=== PATIENT | male | born 1960 | race Caucasian/White ===

== ENCOUNTER 2017-06-13 21:08 | Inpatient (IN) | payer MEDICAID ==
[~2017-06-13] VITALS: Ht 172.7 cm; Wt 81.8 kg
[~2017-06-13 21:08] MED LIST: CARV3.1289 PO; FURO-150 PO; INSU100I25 SQ; LISI-604 PO; NOVLG SQ; POTA20TA19 PO
[2017-06-13 21:54] LABS: BASOPHILS % (AUTO) 0.1 % (0-1); EOSINOPHILS # (AUTO) 0.1 X10'3 (0-0.9); EOSINOPHILS % (AUTO) 0.9 % (0-6); HEMATOCRIT 52.2 % (42.0-52.0); HEMOGLOBIN 16.4 g/dl (14.0-17.9); LYMPHOCYTES # (AUTO) 1.2 X10'3 (1.1-4.8); LYMPHOCYTES % (AUTO) 7.7 % (21-51); MEAN CORPUSCULAR HEMOGLOBIN 27.7 PG (27.0-31.0); MEAN CORPUSCULAR HGB CONC 31.4 % (33.0-36.5); MEAN CORPUSCULAR VOLUME 88.1 FL (78-98); MEAN PLATELET VOLUME 8.5 FL (7.4-10.4); MONOCYTES # (AUTO) 0.5 X10'3 (0-0.9); MONOCYTES % (AUTO) 3.1 % (2-12); NEUTROPHILS # (AUTO) 14.3 X10'3 (1.8-7.7); NEUTROPHILS % (AUTO) 88.2 % (42-75); PLATELET COUNT 178 X10'3 (140-440); RED BLOOD COUNT 5.92 X10'6 (4.70-6.10); RED CELL DISTRIBUTION WIDTH 16.2 % (11.5-14.5); WHITE BLOOD COUNT 16.2 X10'3 (4.5-11.0)
[2017-06-13 22:11] LABS: INR 1.2 INR; PARTIAL THROMBOPLASTIN TIME 27 SECONDS (22-32); PROTHROMBIN TIME 12.3 SECONDS (9.0-12.0)
[2017-06-13 22:12] LABS: ALANINE AMINOTRANSFERASE 57 U/L (12-78); ALBUMIN 2.1 G/DL (3.4-5.0); ALBUMIN/GLOBULIN RATIO 0.3 (1.1-1.5); ALKALINE PHOSPHATASE 141 IU/L (46-116); ANION GAP 8 (8-16); ASPARTATE AMINO TRANSFERASE 65 U/L (10-37); BILIRUBIN,TOTAL 1.1 MG/DL (0.1-1.0); BLOOD UREA NITROGEN 53 MG/DL (7-18); BUN/CREATININE RATIO 24.1 (5.4-32.0); CALCIUM 8.2 MG/DL (8.5-10.1); CHLORIDE 95 MMOL/L (99-107); GLUCOSE 348 MG/DL (70-104); POTASSIUM 5.5 MMOL/L (3.5-5.1); SODIUM 129 MMOL/L (135-145); TOTAL CARBON DIOXIDE 26.3 MMOL/L (24-32); TOTAL PROTEIN 8.4 G/DL (6.4-8.2); eGFR 31 ML/MIN
[2017-06-13] MEDS ORDERED: HYDROmorphone 1 mg/ml syringe IV ONE ×2 (22:55→23:25)
[2017-06-13] MEDS ORDERED: normal saline 1000ML IV soln IV ONE (23:00)
[2017-06-13] MEDS ORDERED: vancomycin/NS 1 GM ADD-VANTAGE 250 ML IV ONE (23:00)
[2017-06-13] MEDS ORDERED: levoFLOXACIN-Levaquin 750MG/D5 150 ML IV ONE (23:00)
[2017-06-13] MEDS ORDERED: magnesium Cl slow-release 64mg tablet PO PRN (23:30)
[2017-06-13] MEDS ORDERED: potassium Cl 20 mEq SR tablet PO PRN ×2 (23:30)
[2017-06-13] MEDS ORDERED: magnesium 4gm in 100ml NS 100 ML IV PRN (23:30)
[2017-06-13] MEDS ORDERED: magnesium 2GM in 50ml NS 50 ML IV PRN (23:30)
[2017-06-13] MEDS ORDERED: magnesium hydroxide 30ml (MOM) UD suspension PO PRN (23:30)
[2017-06-13] MEDS ORDERED: HYDROmorphone 1 mg/ml syringe IV PRN (23:30)
[2017-06-13] MEDS ORDERED: ondansetron/PF 4mg/2ml inj IV PRN (23:30)
[2017-06-13] MEDS ORDERED: potassium Cl 40MEQ/NS 500ml 500 ML IV PRN ×2 (23:30)
[2017-06-13] MEDS ORDERED: mag hydrox/Alum hydrox/simeth 30ml oral suspension PO PRN (23:30)
[2017-06-13] MEDS ORDERED: HYDROcodone/acetaminophen 5mg/325mg tablet PO PRN (23:30)
[2017-06-13] MEDS ORDERED: acetaminophen 325mg tablet PO PRN (23:30)
[2017-06-13] MEDS ORDERED: normal saline 1000ML IV soln IVB ONE (23:35)
[2017-06-13 23:52] LABS: HEMOGLOBIN A1C 9.3 % (4.5-6.2)
[2017-06-14] MEDS: HYDROmorphone 1 mg/ml syringe IV PRN ×2 (01:31→05:58)
[2017-06-14 02:36] VITALS: BP 113/88
[2017-06-14 04:53] LABS: BASOPHILS % (AUTO) 0.1 % (0-1); EOSINOPHILS # (AUTO) 0.2 X10'3 (0-0.9); EOSINOPHILS % (AUTO) 1.2 % (0-6); HEMATOCRIT 52.3 % (42.0-52.0); HEMOGLOBIN 16.8 g/dl (14.0-17.9); LYMPHOCYTES # (AUTO) 1.7 X10'3 (1.1-4.8); LYMPHOCYTES % (AUTO) 10.6 % (21-51); MEAN CORPUSCULAR HEMOGLOBIN 28.1 PG (27.0-31.0); MEAN CORPUSCULAR HGB CONC 32.2 % (33.0-36.5); MEAN CORPUSCULAR VOLUME 87.2 FL (78-98); MEAN PLATELET VOLUME 8.5 FL (7.4-10.4); MONOCYTES # (AUTO) 0.7 X10'3 (0-0.9); MONOCYTES % (AUTO) 4.4 % (2-12); NEUTROPHILS % (AUTO) 83.7 % (42-75); PLATELET COUNT 156 X10'3 (140-440); RED BLOOD COUNT 5.99 X10'6 (4.70-6.10); RED CELL DISTRIBUTION WIDTH 15.7 % (11.5-14.5); WHITE BLOOD COUNT 15.6 X10'3 (4.5-11.0)
[2017-06-14] MEDS: normal saline 1000ml 1,000 ML IV SCH ×2 (05:07→13:30)
[2017-06-14 05:20] LABS: ALANINE AMINOTRANSFERASE 50 U/L (12-78); ALBUMIN 1.9 G/DL (3.4-5.0); ALBUMIN/GLOBULIN RATIO 0.3 (1.1-1.5); ALKALINE PHOSPHATASE 130 IU/L (46-116); ANION GAP 9 (8-16); ASPARTATE AMINO TRANSFERASE 56 U/L (10-37); BILIRUBIN,TOTAL 1.2 MG/DL (0.1-1.0); BLOOD UREA NITROGEN 49 MG/DL (7-18); BUN/CREATININE RATIO 25.8 (5.4-32.0); CHLORIDE 99 MMOL/L (99-107); CHOL/HDL RATIO 2.7 (0.00-4.99); CHOLESTEROL 54 MG/DL (0-200); GLUCOSE 227 MG/DL (70-104); HDL CHOLESTEROL 20 MG/DL (35-60); LDL CHOLESTEROL 36 MG/DL (50-100); MAGNESIUM 1.9 MG/DL (1.5-2.4); POTASSIUM 5.3 MMOL/L (3.5-5.1); SODIUM 131 MMOL/L (135-145); TOTAL CARBON DIOXIDE 23.4 MMOL/L (24-32); TOTAL PROTEIN 8.2 G/DL (6.4-8.2); TRIGLYCERIDES 37 MG/DL (20-135); eGFR 37 ML/MIN
[2017-06-14 07:00] VITALS: BP 114/80
[2017-06-14] MEDS ORDERED: dextrose 50%-water 50ml dispensing syringe IV PRN ×2 (07:15)
[2017-06-14] MEDS ORDERED: glucagon, human recombinant 1mg kit SUBCUT PRN (07:15)
[2017-06-14] MEDS ORDERED: MESSAGE TO PHARMACY PO ONE (07:15)
[2017-06-14] MEDS ORDERED: dextrose ORAL solution 15 GM/59 ML bottle PO PRN ×2 (07:15)
[2017-06-14] MEDS: K and/or MAG REPLACEMENT MC SCH (07:34)
[2017-06-14] MEDS: potassium Cl 20 mEq SR tablet PO SCH (07:35)
[2017-06-14] MEDS ORDERED: vancomycin/NS 1 GM ADD-VANTAGE 250 ML IV SCH (08:00)
[2017-06-14] MEDS ORDERED: levoFLOXACIN-Levaquin 500mg/D5 100 ML IV SCH (08:00)
[2017-06-14] MEDS: levoFLOXACIN-Levaquin 250mg/D5 50 ML IV SCH (08:04)
[2017-06-14] MEDS: heparin, porcine 5000 units/ml vial SQ SCH ×2 (08:05→22:21)
[2017-06-14] MEDS: carVEDilol 3.125mg tablet PO SCH ×2 (08:05→22:21)
[2017-06-14] MEDS: furosemide 20MG tablet PO SCH ×2 (08:05→22:21)
[2017-06-14] MEDS: lisinopril 20mg tablet PO SCH (08:05)
[2017-06-14] MEDS: insulin Lispro (HumaLOG) vial - multi-dose SQ SCH ×2 (10:52→15:33)
[2017-06-14 11:00] VITALS: BP 104/69
[2017-06-14] MEDS: vancomycin inj 500 MG in normal saline 100ml IV soln 100 ML IV SCH (13:30)
[2017-06-14] MEDS ORDERED: normal saline 1000ml 1,000 ML IV SCH (17:15)
[2017-06-14] MEDS ORDERED: lactobacillus rhamnosus 10,000 MMU CELLS/CAPSULE PO SCH (17:30)
[2017-06-14 18:55] VITALS: BP 119/78
[2017-06-14] MEDS ORDERED: HYDROmorphone inj. 0.5 MG/0.5 ML DISP.SYRIN ONE ×2 (18:56→22:54)
[2017-06-14] MEDS ORDERED: Insulin Detemir pen SQ SCH (21:00)
[2017-06-14] MEDS: insulin glargine (Lantus) pen - multi-dose SQ SCH (23:01)
[2017-06-15] VITALS: BP 110/82
[2017-06-15] MEDS ORDERED: HYDROmorphone inj. 0.5 MG/0.5 ML DISP.SYRIN ONE ×3 (03:16→21:18)
[2017-06-15] MEDS: normal saline 1000ml 1,000 ML IV SCH ×4 (03:18→21:35)
[2017-06-15] MEDS: vancomycin inj 500 MG in normal saline 100ml IV soln 100 ML IV SCH ×2 (03:18→13:21)
[2017-06-15 05:34] LABS: BASOPHILS # (AUTO) 0.1 X10'3 (0-0.2); BASOPHILS % (AUTO) 0.4 % (0-1); EOSINOPHILS # (AUTO) 0.2 X10'3 (0-0.9); EOSINOPHILS % (AUTO) 1.5 % (0-6); HEMATOCRIT 45.1 % (42.0-52.0); HEMOGLOBIN 14.5 g/dl (14.0-17.9); LYMPHOCYTES # (AUTO) 1.6 X10'3 (1.1-4.8); LYMPHOCYTES % (AUTO) 12.7 % (21-51); MEAN CORPUSCULAR HEMOGLOBIN 28.2 PG (27.0-31.0); MEAN CORPUSCULAR HGB CONC 32.1 % (33.0-36.5); MEAN CORPUSCULAR VOLUME 87.8 FL (78-98); MEAN PLATELET VOLUME 8.7 FL (7.4-10.4); MONOCYTES # (AUTO) 0.2 X10'3 (0-0.9); MONOCYTES % (AUTO) 1.3 % (2-12); NEUTROPHILS # (AUTO) 10.9 X10'3 (1.8-7.7); NEUTROPHILS % (AUTO) 84.1 % (42-75); PLATELET COUNT 153 X10'3 (140-440); RED BLOOD COUNT 5.13 X10'6 (4.70-6.10); RED CELL DISTRIBUTION WIDTH 16.1 % (11.5-14.5); WHITE BLOOD COUNT 12.9 X10'3 (4.5-11.0)
[2017-06-15 06:18] LABS: ALANINE AMINOTRANSFERASE 39 U/L (12-78); ALBUMIN 1.4 G/DL (3.4-5.0); ALBUMIN/GLOBULIN RATIO 0.3 (1.1-1.5); ALKALINE PHOSPHATASE 121 IU/L (46-116); ANION GAP 10 (8-16); ASPARTATE AMINO TRANSFERASE 43 U/L (10-37); BILIRUBIN,TOTAL 0.8 MG/DL (0.1-1.0); BLOOD UREA NITROGEN 50 MG/DL (7-18); BUN/CREATININE RATIO 26.3 (5.4-32.0); CALCIUM 7.4 MG/DL (8.5-10.1); CHLORIDE 101 MMOL/L (99-107); GLUCOSE 162 MG/DL (70-104); MAGNESIUM 1.7 MG/DL (1.5-2.4); POTASSIUM 4.8 MMOL/L (3.5-5.1); SODIUM 132 MMOL/L (135-145); TOTAL CARBON DIOXIDE 21.2 MMOL/L (24-32); TOTAL PROTEIN 6.6 G/DL (6.4-8.2); eGFR 37 ML/MIN
[2017-06-15] MEDS: K and/or MAG REPLACEMENT MC SCH (06:59)
[2017-06-15 07:00] VITALS: BP 106/72
[2017-06-15] MEDS: levoFLOXACIN-Levaquin 250mg/D5 50 ML IV SCH (08:09)
[2017-06-15] MEDS: heparin, porcine 5000 units/ml vial SQ SCH ×2 (08:14→21:34)
[2017-06-15] MEDS: potassium Cl 20 mEq SR tablet PO SCH (08:15)
[2017-06-15] MEDS: LACTOBACILLUS RHAMNOSUS GG 15 billion unit sprinkle caps PO SCH (08:15)
[2017-06-15] MEDS: furosemide 20MG tablet PO SCH ×2 (08:15→21:33)
[2017-06-15] MEDS: lisinopril 20mg tablet PO SCH (08:15)
[2017-06-15] MEDS: carVEDilol 3.125mg tablet PO SCH ×2 (08:15→21:31)
[2017-06-15] MEDS: insulin Lispro (HumaLOG) vial - multi-dose SQ SCH ×3 (09:23→19:46)
[2017-06-15 11:00] VITALS: BP 104/64
[2017-06-15 18:00] VITALS: BP 111/79
[2017-06-15] MEDS: insulin glargine (Lantus) pen - multi-dose SQ SCH (22:04)
[2017-06-15 23:00] VITALS: BP 115/71
[2017-06-15] MEDS ORDERED: VANCOMYCIN LEVEL IV NR (23:30)
[2017-06-16] MEDS: vancomycin inj 500 MG in normal saline 100ml IV soln 100 ML IV SCH ×2 (00:29→11:52)
[2017-06-16] MEDS: HYDROcodone/acetaminophen 10/325mg tab PO PRN ×2 (03:40→19:17)
[2017-06-16 05:34] LABS: BASOPHILS % (AUTO) 0.1 % (0-1); EOSINOPHILS # (AUTO) 0.3 X10'3 (0-0.9); EOSINOPHILS % (AUTO) 3.1 % (0-6); HEMATOCRIT 43.7 % (42.0-52.0); HEMOGLOBIN 14.2 g/dl (14.0-17.9); LYMPHOCYTES # (AUTO) 1.5 X10'3 (1.1-4.8); LYMPHOCYTES % (AUTO) 12.9 % (21-51); MEAN CORPUSCULAR HEMOGLOBIN 28.3 PG (27.0-31.0); MEAN CORPUSCULAR HGB CONC 32.5 % (33.0-36.5); MEAN CORPUSCULAR VOLUME 86.9 FL (78-98); MEAN PLATELET VOLUME 8.4 FL (7.4-10.4); MONOCYTES # (AUTO) 0.6 X10'3 (0-0.9); MONOCYTES % (AUTO) 5.7 % (2-12); NEUTROPHILS # (AUTO) 8.8 X10'3 (1.8-7.7); NEUTROPHILS % (AUTO) 78.2 % (42-75); PLATELET COUNT 188 X10'3 (140-440); RED BLOOD COUNT 5.03 X10'6 (4.70-6.10); RED CELL DISTRIBUTION WIDTH 16.1 % (11.5-14.5); WHITE BLOOD COUNT 11.3 X10'3 (4.5-11.0)
[2017-06-16 05:55] LABS: ALANINE AMINOTRANSFERASE 38 U/L (12-78); ALBUMIN 1.4 G/DL (3.4-5.0); ALBUMIN/GLOBULIN RATIO 0.3 (1.1-1.5); ALKALINE PHOSPHATASE 134 IU/L (46-116); ANION GAP 8 (8-16); ASPARTATE AMINO TRANSFERASE 41 U/L (10-37); BILIRUBIN,TOTAL 0.7 MG/DL (0.1-1.0); BLOOD UREA NITROGEN 47 MG/DL (7-18); BUN/CREATININE RATIO 29.4 (5.4-32.0); CALCIUM 7.7 MG/DL (8.5-10.1); CHLORIDE 103 MMOL/L (99-107); GLUCOSE 111 MG/DL (70-104); MAGNESIUM 1.5 MG/DL (1.5-2.4); POTASSIUM 4.6 MMOL/L (3.5-5.1); SODIUM 134 MMOL/L (135-145); TOTAL CARBON DIOXIDE 22.8 MMOL/L (24-32); TOTAL PROTEIN 6.8 G/DL (6.4-8.2); eGFR 45 ML/MIN
[2017-06-16 07:00] VITALS: BP 128/82
[2017-06-16] MEDS: potassium Cl 20 mEq SR tablet PO SCH (07:14)
[2017-06-16] MEDS: lisinopril 20mg tablet PO SCH (07:14)
[2017-06-16] MEDS: levoFLOXACIN-Levaquin 250mg/D5 50 ML IV SCH (07:15)
[2017-06-16] MEDS: carVEDilol 3.125mg tablet PO SCH ×2 (07:15→19:10)
[2017-06-16] MEDS: LACTOBACILLUS RHAMNOSUS GG 15 billion unit sprinkle caps PO SCH (07:15)
[2017-06-16] MEDS: furosemide 20MG tablet PO SCH ×2 (07:16→19:10)
[2017-06-16] MEDS: heparin, porcine 5000 units/ml vial SQ SCH ×2 (07:17→19:11)
[2017-06-16] MEDS: K and/or MAG REPLACEMENT MC SCH (07:18)
[2017-06-16] MEDS: normal saline 1000ml 1,000 ML IV SCH ×2 (11:12→23:13)
[2017-06-16] MEDS ORDERED: HYDROmorphone inj. 0.5 MG/0.5 ML DISP.SYRIN ONE (11:49)
[2017-06-16 11:55] VITALS: BP 109/72
[2017-06-16] MEDS: insulin Lispro (HumaLOG) vial - multi-dose SQ SCH ×2 (14:10→19:14)
[2017-06-16 19:00] VITALS: BP 129/89
[2017-06-16] MEDS: insulin glargine (Lantus) pen - multi-dose SQ SCH (22:45)
[2017-06-16 23:00] VITALS: BP 123/74
[2017-06-17] MEDS: vancomycin inj 500 MG in normal saline 100ml IV soln 100 ML IV SCH ×2 (01:07→12:31)
[2017-06-17] MEDS: HYDROcodone/acetaminophen 10/325mg tab PO PRN ×2 (01:53→13:58)
[2017-06-17 05:37] LABS: BASOPHILS % (AUTO) 0.4 % (0-1); EOSINOPHILS # (AUTO) 0.4 X10'3 (0-0.9); EOSINOPHILS % (AUTO) 3.7 % (0-6); HEMATOCRIT 45.1 % (42.0-52.0); HEMOGLOBIN 14.4 g/dl (14.0-17.9); LYMPHOCYTES # (AUTO) 1.9 X10'3 (1.1-4.8); LYMPHOCYTES % (AUTO) 18.7 % (21-51); MEAN CORPUSCULAR HEMOGLOBIN 28.1 PG (27.0-31.0); MEAN CORPUSCULAR VOLUME 87.9 FL (78-98); MEAN PLATELET VOLUME 7.8 FL (7.4-10.4); MONOCYTES # (AUTO) 0.6 X10'3 (0-0.9); MONOCYTES % (AUTO) 6.3 % (2-12); NEUTROPHILS # (AUTO) 7.1 X10'3 (1.8-7.7); NEUTROPHILS % (AUTO) 70.9 % (42-75); PLATELET COUNT 231 X10'3 (140-440); RED BLOOD COUNT 5.13 X10'6 (4.70-6.10); RED CELL DISTRIBUTION WIDTH 16.6 % (11.5-14.5)
[2017-06-17 06:10] LABS: ALANINE AMINOTRANSFERASE 30 U/L (12-78); ALBUMIN 1.4 G/DL (3.4-5.0); ALBUMIN/GLOBULIN RATIO 0.3 (1.1-1.5); ALKALINE PHOSPHATASE 125 IU/L (46-116); ANION GAP 8 (8-16); ASPARTATE AMINO TRANSFERASE 36 U/L (10-37); BILIRUBIN,TOTAL 0.7 MG/DL (0.1-1.0); BLOOD UREA NITROGEN 40 MG/DL (7-18); CALCIUM 7.8 MG/DL (8.5-10.1); CHLORIDE 105 MMOL/L (99-107); GLUCOSE 57 MG/DL (70-104); MAGNESIUM 1.6 MG/DL (1.5-2.4); POTASSIUM 4.6 MMOL/L (3.5-5.1); SODIUM 138 MMOL/L (135-145); TOTAL CARBON DIOXIDE 25.4 MMOL/L (24-32); TOTAL PROTEIN 6.8 G/DL (6.4-8.2); eGFR 45 ML/MIN
[2017-06-17 07:00] VITALS: BP 138/98
[2017-06-17] MEDS ORDERED: levoFLOXACIN-Levaquin 500mg/D5 100 ML IV SCH (08:00)
[2017-06-17] MEDS: K and/or MAG REPLACEMENT MC SCH (08:00)
[2017-06-17] MEDS: normal saline 1000ml 1,000 ML IV SCH ×3 (09:08→21:06)
[2017-06-17] MEDS: furosemide 20MG tablet PO SCH ×2 (09:09→21:17)
[2017-06-17] MEDS: carVEDilol 3.125mg tablet PO SCH ×2 (09:09→21:16)
[2017-06-17] MEDS: lisinopril 20mg tablet PO SCH (09:09)
[2017-06-17] MEDS: potassium Cl 20 mEq SR tablet PO SCH (09:09)
[2017-06-17] MEDS: heparin, porcine 5000 units/ml vial SQ SCH ×2 (09:10→21:17)
[2017-06-17] MEDS: silver sulfadiazine cream 400gm jar TP SCH (09:10)
[2017-06-17 11:00] VITALS: BP 128/80
[2017-06-17] MEDS: LACTOBACILLUS RHAMNOSUS GG 15 billion unit sprinkle caps PO SCH (12:07)
[2017-06-17] MEDS: insulin Lispro (HumaLOG) vial - multi-dose SQ SCH (14:00)
[2017-06-17 20:00] VITALS: BP 132/92
[2017-06-17] MEDS: insulin glargine (Lantus) pen - multi-dose SQ SCH (21:21)
[2017-06-17 23:00] VITALS: BP 109/69
[2017-06-18] MEDS: vancomycin inj 500 MG in normal saline 100ml IV soln 100 ML IV SCH ×2 (01:17→12:35)
[2017-06-18] MEDS: HYDROcodone/acetaminophen 10/325mg tab PO PRN ×3 (01:19→21:34)
[2017-06-18 05:17] LABS: BASOPHILS # (AUTO) 0.1 X10'3 (0-0.2); BASOPHILS % (AUTO) 0.5 % (0-1); EOSINOPHILS # (AUTO) 0.4 X10'3 (0-0.9); EOSINOPHILS % (AUTO) 3.5 % (0-6); HEMATOCRIT 43.7 % (42.0-52.0); HEMOGLOBIN 14.5 g/dl (14.0-17.9); LYMPHOCYTES # (AUTO) 1.4 X10'3 (1.1-4.8); LYMPHOCYTES % (AUTO) 14.3 % (21-51); MEAN CORPUSCULAR HEMOGLOBIN 28.4 PG (27.0-31.0); MEAN CORPUSCULAR HGB CONC 33.1 % (33.0-36.5); MEAN CORPUSCULAR VOLUME 85.8 FL (78-98); MEAN PLATELET VOLUME 7.3 FL (7.4-10.4); MONOCYTES # (AUTO) 0.7 X10'3 (0-0.9); MONOCYTES % (AUTO) 6.5 % (2-12); NEUTROPHILS # (AUTO) 7.6 X10'3 (1.8-7.7); NEUTROPHILS % (AUTO) 75.2 % (42-75); PLATELET COUNT 251 X10'3 (140-440); RED CELL DISTRIBUTION WIDTH 16.6 % (11.5-14.5); WHITE BLOOD COUNT 10.1 X10'3 (4.5-11.0)
[2017-06-18 05:47] LABS: ALANINE AMINOTRANSFERASE 28 U/L (12-78); ALBUMIN 1.5 G/DL (3.4-5.0); ALBUMIN/GLOBULIN RATIO 0.3 (1.1-1.5); ALKALINE PHOSPHATASE 114 IU/L (46-116); ANION GAP 7 (8-16); ASPARTATE AMINO TRANSFERASE 33 U/L (10-37); BILIRUBIN,TOTAL 0.7 MG/DL (0.1-1.0); BLOOD UREA NITROGEN 32 MG/DL (7-18); BUN/CREATININE RATIO 21.3 (5.4-32.0); CALCIUM 7.8 MG/DL (8.5-10.1); CHLORIDE 105 MMOL/L (99-107); GLUCOSE 129 MG/DL (70-104); MAGNESIUM 1.6 MG/DL (1.5-2.4); POTASSIUM 4.7 MMOL/L (3.5-5.1); SODIUM 138 MMOL/L (135-145); TOTAL CARBON DIOXIDE 25.6 MMOL/L (24-32); TOTAL PROTEIN 7.2 G/DL (6.4-8.2); eGFR 48 ML/MIN
[2017-06-18] MEDS: normal saline 1000ml 1,000 ML IV SCH ×2 (07:23→16:59)
[2017-06-18] MEDS: heparin, porcine 5000 units/ml vial SQ SCH ×2 (07:23→21:35)
[2017-06-18] MEDS: LACTOBACILLUS RHAMNOSUS GG 15 billion unit sprinkle caps PO SCH (07:23)
[2017-06-18] MEDS: carVEDilol 3.125mg tablet PO SCH ×2 (07:24→21:34)
[2017-06-18] MEDS: potassium Cl 20 mEq SR tablet PO SCH (07:24)
[2017-06-18] MEDS: furosemide 20MG tablet PO SCH ×2 (07:24→21:34)
[2017-06-18] MEDS: lisinopril 20mg tablet PO SCH (07:24)
[2017-06-18] MEDS: silver sulfadiazine cream 400gm jar TP SCH (07:38)
[2017-06-18] MEDS: K and/or MAG REPLACEMENT MC SCH (07:39)
[2017-06-18 07:51] VITALS: BP 118/76
[2017-06-18] MEDS: insulin Lispro (HumaLOG) vial - multi-dose SQ SCH ×3 (08:50→19:04)
[2017-06-18 11:55] VITALS: BP 118/74
[2017-06-18 20:00] VITALS: BP 121/71
[2017-06-18] MEDS: insulin glargine (Lantus) pen - multi-dose SQ SCH (21:31)
[2017-06-18 23:00] VITALS: BP 143/96
[2017-06-19] MEDS: vancomycin inj 500 MG in normal saline 100ml IV soln 100 ML IV SCH ×2 (02:37→12:22)
[2017-06-19] MEDS: normal saline 1000ml 1,000 ML IV SCH ×2 (02:37→21:32)
[2017-06-19] MEDS: K and/or MAG REPLACEMENT MC SCH (06:57)
[2017-06-19] MEDS: heparin, porcine 5000 units/ml vial SQ SCH ×2 (07:47→19:16)
[2017-06-19] MEDS: potassium Cl 20 mEq SR tablet PO SCH (07:47)
[2017-06-19] MEDS: lisinopril 20mg tablet PO SCH (07:47)
[2017-06-19] MEDS: carVEDilol 3.125mg tablet PO SCH ×2 (07:47→19:15)
[2017-06-19] MEDS: furosemide 20MG tablet PO SCH ×2 (07:47→19:16)
[2017-06-19] MEDS: LACTOBACILLUS RHAMNOSUS GG 15 billion unit sprinkle caps PO SCH (07:47)
[2017-06-19] MEDS: silver sulfadiazine cream 400gm jar TP SCH (07:48)
[2017-06-19 08:00] VITALS: BP 143/99
[2017-06-19] MEDS: insulin Lispro (HumaLOG) vial - multi-dose SQ SCH ×3 (09:17→19:19)
[2017-06-19 11:18] VITALS: BP 114/69
[2017-06-19] MEDS: HYDROcodone/acetaminophen 10/325mg tab PO PRN (16:04)
[2017-06-19 20:00] VITALS: BP 135/79
[2017-06-19] MEDS: insulin glargine (Lantus) pen - multi-dose SQ SCH (21:29)
[2017-06-20] VITALS: BP 115/88
[2017-06-20] MEDS: vancomycin inj 500 MG in normal saline 100ml IV soln 100 ML IV SCH ×2 (00:24→12:23)
[2017-06-20 06:08] LABS: ALBUMIN 1.8 G/DL (3.4-5.0); ANION GAP 8 (8-16); BLOOD UREA NITROGEN 28 MG/DL (7-18); CALCIUM 8.3 MG/DL (8.5-10.1); CHLORIDE 106 MMOL/L (99-107); GLUCOSE 181 MG/DL (70-104); MAGNESIUM 1.5 MG/DL (1.5-2.4); POTASSIUM 4.4 MMOL/L (3.5-5.1); SODIUM 143 MMOL/L (135-145); TOTAL CARBON DIOXIDE 28.7 MMOL/L (24-32); eGFR 52 ML/MIN
[2017-06-20 08:00] VITALS: BP 117/72
[2017-06-20] MEDS: K and/or MAG REPLACEMENT MC SCH (08:00)
[2017-06-20] MEDS: insulin Lispro (HumaLOG) vial - multi-dose SQ SCH ×2 (08:38→13:29)
[2017-06-20] MEDS: normal saline 1000ml 1,000 ML IV SCH (08:38)
[2017-06-20] MEDS: carVEDilol 3.125mg tablet PO SCH (08:39)
[2017-06-20] MEDS: potassium Cl 20 mEq SR tablet PO SCH (08:39)
[2017-06-20] MEDS: LACTOBACILLUS RHAMNOSUS GG 15 billion unit sprinkle caps PO SCH (08:39)
[2017-06-20] MEDS: furosemide 20MG tablet PO SCH (08:39)
[2017-06-20] MEDS: heparin, porcine 5000 units/ml vial SQ SCH (08:39)
[2017-06-20] MEDS: lisinopril 20mg tablet PO SCH (08:39)
[2017-06-20] MEDS: silver sulfadiazine cream 400gm jar TP SCH (08:40)
[2017-06-20] MEDS ORDERED: heparin 1,000 UNITS/NS 500ml 500 ML IV ONE (09:30)
[2017-06-20] MEDS ORDERED: LIDOcaine 1%/PF (10mg/ml) 5ml vial ONE (09:42)
[2017-06-20] MEDS ORDERED: iohexol 300mg/ml 100ml inj. ONE (09:42)
[2017-06-20] MEDS ORDERED: CLIN-80 PO (10:06)
[2017-06-20] MEDS ORDERED: VANCOMYCIN LEVEL IV NR (23:30)
== END 2017-06-20 14:15 | disposition home health service (06) | DRG 720 ==
LOC: ER 21:09 → ED HOLD 23:36 → SUR 3N 06-14 01:05
PROVIDERS: ADMIT Internal Medicine; ATTEND Radiology Diagnostic Radiology
DX: A41.9 Sepsis, unspecified organism (principal); N17.9 Acute kidney failure, unspecified; D68.9 Coagulation defect, unspecified; E11.51 Type 2 diabetes mellitus with diabetic peripheral angiopathy without gangrene; E11.22 Type 2 diabetes mellitus with diabetic chronic kidney disease; I13.0 Hypertensive heart and chronic kidney disease with heart failure and stage 1 through stage 4 chronic kidney disease, or unspecified chronic kidney disease; I50.9 Heart failure, unspecified; L03.116 Cellulitis of left lower limb; E11.65 Type 2 diabetes mellitus with hyperglycemia; E87.1 Hypo-osmolality and hyponatremia; N18.9 Chronic kidney disease, unspecified; E87.5 Hyperkalemia; F15.90 Other stimulant use, unspecified, uncomplicated; Z88.0 Allergy status to penicillin; Z88.5 Allergy status to narcotic agent; V86.55XA Driver of 3- or 4- wheeled all-terrain vehicle (ATV) injured in nontraffic accident, initial encounter; Z59.0 Homelessness; Y93.89 Activity, other specified; Y92.89 Other specified places as the place of occurrence of the external cause; Z86.19 Personal history of other infectious and parasitic diseases; I25.10 Atherosclerotic heart disease of native coronary artery without angina pectoris; E86.0 Dehydration; Z51.5 Encounter for palliative care
CPT/HCPCS: 36415; 71045; 73502; 73552; 80048; 80053; 80061; 80202; 82948; 83036; 83605; 83735; 84145; 85025; 85610; 85730; 86885; 86900; 86901; 87040; 87070; 87077; 87186; 93005; 93925; 93970; 96374; 99285; A6212; A6213; A6255; A6258; A6446; A6449; J1170; J1644; J1815; J1956; J2001; J3370; J7030; Q9967

== ENCOUNTER 2017-06-28 18:55 | Inpatient (IN) | payer MEDICAID ==
[~2017-06-28] VITALS: Ht 172.7 cm; Wt 91.0 kg
[~2017-06-28 18:55] MED LIST changes: +CLIN-80 PO
[2017-06-28 19:30] LABS: BASOPHILS # (AUTO) 0.1 X10'3 (0-0.2); BASOPHILS % (AUTO) 0.6 % (0-1); EOSINOPHILS # (AUTO) 0.2 X10'3 (0-0.9); EOSINOPHILS % (AUTO) 1.7 % (0-6); HEMATOCRIT 48.9 % (42.0-52.0); HEMOGLOBIN 15.8 g/dl (14.0-17.9); LYMPHOCYTES % (AUTO) 29.2 % (21-51); MEAN CORPUSCULAR HEMOGLOBIN 27.9 PG (27.0-31.0); MEAN CORPUSCULAR HGB CONC 32.2 % (33.0-36.5); MEAN CORPUSCULAR VOLUME 86.9 FL (78-98); MEAN PLATELET VOLUME 8.1 FL (7.4-10.4); MONOCYTES # (AUTO) 0.7 X10'3 (0-0.9); MONOCYTES % (AUTO) 6.9 % (2-12); NEUTROPHILS # (AUTO) 6.3 X10'3 (1.8-7.7); NEUTROPHILS % (AUTO) 61.6 % (42-75); PLATELET COUNT 249 X10'3 (140-440); RED BLOOD COUNT 5.63 X10'6 (4.70-6.10); RED CELL DISTRIBUTION WIDTH 17.4 % (11.5-14.5); WHITE BLOOD COUNT 10.2 X10'3 (4.5-11.0)
[2017-06-28 19:36] LABS: INR 1.4 INR; PARTIAL THROMBOPLASTIN TIME 27 SECONDS (22-32); PROTHROMBIN TIME 14.3 SECONDS (9.0-12.0)
[2017-06-28 19:45] LABS: ALANINE AMINOTRANSFERASE 36 U/L (12-78); ALBUMIN 2.2 G/DL (3.4-5.0); ALBUMIN/GLOBULIN RATIO 0.3 (1.1-1.5); ALKALINE PHOSPHATASE 154 IU/L (46-116); ANION GAP 13 (8-16); ASPARTATE AMINO TRANSFERASE 51 U/L (10-37); BILIRUBIN,TOTAL 1.4 MG/DL (0.1-1.0); BLOOD UREA NITROGEN 41 MG/DL (7-18); BUN/CREATININE RATIO 20.5 (5.4-32.0); CALCIUM 8.5 MG/DL (8.5-10.1); CHLORIDE 102 MMOL/L (99-107); GLUCOSE 216 MG/DL (70-104); SODIUM 135 MMOL/L (135-145); TOTAL CARBON DIOXIDE 20.3 MMOL/L (24-32); TOTAL PROTEIN 8.8 G/DL (6.4-8.2); TROPONIN I 0.05 NG/ML (0.0-0.05); eGFR 35 ML/MIN
[2017-06-28 19:46] LABS: POTASSIUM 5.2 MMOL/L (3.5-5.1)
[2017-06-28 21:14] LABS: ETHANOL < 0.010 GM/DL (0.0-0.010)
[2017-06-28 21:15] LABS: ACETAMINOPHEN < 2.0 UG/ML (10-30)
[2017-06-28 22:02] LABS: URINE AMPHETAMINE SCREEN POSITIVE (Neg); URINE BARBITUATE SCREEN NEGATIVE (Neg); URINE BENZODIAZEPINES SCREEN NEGATIVE (Neg); URINE CANNABINOID SCREEN NEGATIVE (Neg); URINE COCAINE SCREEN NEGATIVE (Neg); URINE METHADONE SCREEN NEGATIVE (Neg); URINE OPIATE SCREEN NEGATIVE (Neg); URINE PHENCYCLIDINE SCREEN NEGATIVE (Neg)
[2017-06-28 22:20] LABS: CLARITY,URINE SLIGHTLY CLOUDY (Clear); COLOR,URINE AMBER (Yellow); GLUCOSE, URINE NEGATIVE (Neg); KETONES,URINE NEGATIVE (Neg); LEUKOCYTE ESTERASE ,URINE NEGATIVE (Neg); NITRITES, URINE NEGATIVE (Neg); PH,URINE 5.5 (4.8-8.0); PROTEIN,URINE >=300 mg/dl (Neg)
[2017-06-28 22:25] LABS: UA COLLECTION TYPE CLN CATCH MIDSTREAM
[2017-06-28 22:32] LABS: OCCULT BLOOD,URINE SMALL (Neg)
[2017-06-28 23:01] LABS: HYALINE CASTS >30 /LPF (NEGATIVE)
[2017-06-28 23:02] LABS: BACTERIA,URINE FEW /HPF (Neg); MUCUS STRANDS MANY /LPF (Neg); RBC,URINE 0-2 /HPF (0-2); SQUAMOUS EPITHELIAL CELL,UR MODERATE /LPF (FEW)
[2017-06-28] MEDS: normal saline 1000ml 1,000 ML IV SCH (23:20)
[2017-06-28] MEDS ORDERED: magnesium Cl slow-release 64mg tablet PO PRN (23:20)
[2017-06-28] MEDS ORDERED: magnesium 2GM in 50ml NS 50 ML IV PRN (23:20)
[2017-06-28] MEDS ORDERED: ondansetron/PF 4mg/2ml inj IV PRN (23:20)
[2017-06-28] MEDS ORDERED: HYDROcodone/acetaminophen 5mg/325mg tablet PO PRN (23:20)
[2017-06-28] MEDS ORDERED: acetaminophen 325mg tablet PO PRN (23:20)
[2017-06-28] MEDS ORDERED: magnesium hydroxide 30ml (MOM) UD suspension PO PRN (23:20)
[2017-06-28] MEDS ORDERED: potassium Cl 20 mEq SR tablet PO PRN ×2 (23:20)
[2017-06-28] MEDS ORDERED: magnesium 4gm in 100ml NS 100 ML IV PRN (23:20)
[2017-06-28] MEDS ORDERED: potassium Cl 40MEQ/NS 500ml 500 ML IV PRN ×2 (23:20)
[2017-06-29 00:15] VITALS: BP 121/81
[2017-06-29] MEDS ORDERED: glucagon, human recombinant 1mg kit SUBCUT PRN (01:15)
[2017-06-29] MEDS ORDERED: MESSAGE TO PHARMACY PO ONE (01:15)
[2017-06-29] MEDS ORDERED: dextrose 50%-water 50ml dispensing syringe IV PRN ×2 (01:15)
[2017-06-29] MEDS ORDERED: dextrose ORAL solution 15 GM/59 ML bottle PO PRN ×2 (01:15)
[2017-06-29] MEDS: clindamycin 150mg capsule PO SCH ×4 (02:24→21:07)
[2017-06-29 07:08] LABS: BASOPHILS # (AUTO) 0.1 X10'3 (0-0.2); BASOPHILS % (AUTO) 1.1 % (0-1); EOSINOPHILS # (AUTO) 0.1 X10'3 (0-0.9); EOSINOPHILS % (AUTO) 0.8 % (0-6); HEMATOCRIT 50.6 % (42.0-52.0); HEMOGLOBIN 16.7 g/dl (14.0-17.9); LYMPHOCYTES # (AUTO) 2.9 X10'3 (1.1-4.8); LYMPHOCYTES % (AUTO) 28.1 % (21-51); MEAN CORPUSCULAR HEMOGLOBIN 28.3 PG (27.0-31.0); MEAN CORPUSCULAR HGB CONC 32.9 % (33.0-36.5); MEAN CORPUSCULAR VOLUME 85.9 FL (78-98); MEAN PLATELET VOLUME 8.7 FL (7.4-10.4); MONOCYTES # (AUTO) 0.7 X10'3 (0-0.9); MONOCYTES % (AUTO) 6.5 % (2-12); NEUTROPHILS # (AUTO) 6.6 X10'3 (1.8-7.7); NEUTROPHILS % (AUTO) 63.5 % (42-75); PLATELET COUNT 230 X10'3 (140-440); RED BLOOD COUNT 5.89 X10'6 (4.70-6.10); RED CELL DISTRIBUTION WIDTH 17.1 % (11.5-14.5); WHITE BLOOD COUNT 10.4 X10'3 (4.5-11.0)
[2017-06-29] MEDS: K and/or MAG REPLACEMENT MC SCH (08:00)
[2017-06-29] MEDS: furosemide 20MG tablet PO SCH ×2 (09:26→21:07)
[2017-06-29] MEDS: carVEDilol 3.125mg tablet PO SCH ×2 (09:26→21:07)
[2017-06-29] MEDS: lisinopril 20mg tablet PO SCH (09:27)
[2017-06-29] MEDS: aspirin 81mg tablet.DR PO SCH (09:28)
[2017-06-29] MEDS: heparin, porcine 5000 units/ml vial SQ SCH ×2 (09:56→21:08)
[2017-06-29 10:00] VITALS: BP 135/83
[2017-06-29 10:18] LABS: ALANINE AMINOTRANSFERASE 33 U/L (12-78); ALBUMIN 2.1 G/DL (3.4-5.0); ALBUMIN/GLOBULIN RATIO 0.3 (1.1-1.5); ALKALINE PHOSPHATASE 144 IU/L (46-116); ANION GAP 13 (8-16); ASPARTATE AMINO TRANSFERASE 49 U/L (10-37); BILIRUBIN,TOTAL 1.8 MG/DL (0.1-1.0); BLOOD UREA NITROGEN 46 MG/DL (7-18); CALCIUM 8.5 MG/DL (8.5-10.1); CHLORIDE 103 MMOL/L (99-107); CHOL/HDL RATIO 2.6 (0.00-4.99); CHOLESTEROL 69 MG/DL (0-200); GLUCOSE 139 MG/DL (70-104); HDL CHOLESTEROL 27 MG/DL (35-60); LDL CHOLESTEROL 44 MG/DL (50-100); MAGNESIUM 1.6 MG/DL (1.5-2.4); SODIUM 136 MMOL/L (135-145); TOTAL CARBON DIOXIDE 20.3 MMOL/L (24-32); TOTAL PROTEIN 8.4 G/DL (6.4-8.2); TRIGLYCERIDES 47 MG/DL (20-135); eGFR 35 ML/MIN
[2017-06-29 10:23] LABS: POTASSIUM 4.8 MMOL/L (3.5-5.1)
[2017-06-29] MEDS: normal saline 1000ml 1,000 ML IV SCH (12:40)
[2017-06-29 14:00] VITALS: BP 94/63
[2017-06-29] MEDS: mag hydrox/Alum hydrox/simeth 30ml oral suspension PO PRN ×2 (15:36→21:13)
[2017-06-29] MEDS: lactobacillus rhamnosus 10,000 MMU CELLS/CAPSULE PO SCH (16:52)
[2017-06-29 17:00] VITALS: BP 124/88
[2017-06-29] MEDS: insulin Lispro (HumaLOG) vial - multi-dose SQ SCH (19:15)
[2017-06-29] MEDS: insulin glargine (Lantus) pen - multi-dose SQ SCH (21:32)
[2017-06-29 22:00] VITALS: BP 116/80
[2017-06-30] MEDS: normal saline 1000ml 1,000 ML IV SCH (02:00)
[2017-06-30] MEDS: mag hydrox/Alum hydrox/simeth 30ml oral suspension PO PRN ×2 (02:10→08:52)
[2017-06-30] MEDS: clindamycin 150mg capsule PO SCH ×4 (02:10→20:41)
[2017-06-30 06:00] VITALS: BP 98/62
[2017-06-30] MEDS: K and/or MAG REPLACEMENT MC SCH (08:00)
[2017-06-30] MEDS: lactobacillus rhamnosus 10,000 MMU CELLS/CAPSULE PO SCH ×2 (08:44→17:29)
[2017-06-30] MEDS: lisinopril 20mg tablet PO SCH (08:45)
[2017-06-30] MEDS: carVEDilol 3.125mg tablet PO SCH ×2 (08:45→20:41)
[2017-06-30] MEDS: furosemide 20MG tablet PO SCH ×2 (08:45→20:41)
[2017-06-30] MEDS: aspirin 81mg tablet.DR PO SCH (08:45)
[2017-06-30] MEDS: heparin, porcine 5000 units/ml vial SQ SCH ×2 (08:48→20:42)
[2017-06-30 08:54] VITALS: BP 121/84
[2017-06-30 09:15] LABS: BASOPHILS % (AUTO) 0.7 % (0-1); EOSINOPHILS # (AUTO) 0.2 X10'3 (0-0.9); EOSINOPHILS % (AUTO) 3.1 % (0-6); HEMATOCRIT 46.7 % (42.0-52.0); HEMOGLOBIN 15.1 g/dl (14.0-17.9); LYMPHOCYTES # (AUTO) 1.7 X10'3 (1.1-4.8); LYMPHOCYTES % (AUTO) 23.1 % (21-51); MEAN CORPUSCULAR HEMOGLOBIN 28.2 PG (27.0-31.0); MEAN CORPUSCULAR HGB CONC 32.4 % (33.0-36.5); MEAN PLATELET VOLUME 8.2 FL (7.4-10.4); MONOCYTES # (AUTO) 0.6 X10'3 (0-0.9); MONOCYTES % (AUTO) 8.4 % (2-12); NEUTROPHILS # (AUTO) 4.7 X10'3 (1.8-7.7); NEUTROPHILS % (AUTO) 64.7 % (42-75); PLATELET COUNT 235 X10'3 (140-440); RED BLOOD COUNT 5.37 X10'6 (4.70-6.10); RED CELL DISTRIBUTION WIDTH 17.3 % (11.5-14.5); WHITE BLOOD COUNT 7.3 X10'3 (4.5-11.0)
[2017-06-30 09:17] LABS: ALANINE AMINOTRANSFERASE 28 U/L (12-78); ALBUMIN 1.8 G/DL (3.4-5.0); ALBUMIN/GLOBULIN RATIO 0.3 (1.1-1.5); ALKALINE PHOSPHATASE 119 IU/L (46-116); ANION GAP 7 (8-16); ASPARTATE AMINO TRANSFERASE 42 U/L (10-37); BLOOD UREA NITROGEN 44 MG/DL (7-18); BUN/CREATININE RATIO 25.9 (5.4-32.0); CALCIUM 8.3 MG/DL (8.5-10.1); CHLORIDE 105 MMOL/L (99-107); GLUCOSE 121 MG/DL (70-104); MAGNESIUM 1.9 MG/DL (1.5-2.4); POTASSIUM 4.3 MMOL/L (3.5-5.1); SODIUM 138 MMOL/L (135-145); TOTAL CARBON DIOXIDE 25.7 MMOL/L (24-32); TOTAL PROTEIN 7.6 G/DL (6.4-8.2); eGFR 42 ML/MIN
[2017-06-30] MEDS: insulin Lispro (HumaLOG) vial - multi-dose SQ SCH ×2 (09:54→13:49)
[2017-06-30 10:00] VITALS: BP 115/76
[2017-06-30 14:00] VITALS: BP 120/79
[2017-06-30] MEDS: HYDROcodone/acetaminophen 10/325mg tab PO PRN (20:42)
[2017-06-30] MEDS: insulin glargine (Lantus) pen - multi-dose SQ SCH (20:57)
[2017-07-01] MEDS: clindamycin 150mg capsule PO SCH ×4 (01:51→19:06)
[2017-07-01] MEDS: HYDROcodone/acetaminophen 10/325mg tab PO PRN (01:51)
[2017-07-01 02:00] VITALS: BP 102/74
[2017-07-01 06:00] VITALS: BP_SYST 121; BP_DIAS 76; BP_DIAS 78
[2017-07-01 06:11] LABS: BASOPHILS % (AUTO) 0.5 % (0-1); EOSINOPHILS # (AUTO) 0.3 X10'3 (0-0.9); EOSINOPHILS % (AUTO) 3.9 % (0-6); HEMATOCRIT 46.4 % (42.0-52.0); HEMOGLOBIN 15.3 g/dl (14.0-17.9); LYMPHOCYTES # (AUTO) 1.9 X10'3 (1.1-4.8); LYMPHOCYTES % (AUTO) 29.2 % (21-51); MEAN CORPUSCULAR HEMOGLOBIN 28.5 PG (27.0-31.0); MEAN CORPUSCULAR VOLUME 86.3 FL (78-98); MEAN PLATELET VOLUME 8.2 FL (7.4-10.4); MONOCYTES # (AUTO) 0.6 X10'3 (0-0.9); MONOCYTES % (AUTO) 8.6 % (2-12); NEUTROPHILS # (AUTO) 3.8 X10'3 (1.8-7.7); NEUTROPHILS % (AUTO) 57.8 % (42-75); PLATELET COUNT 216 X10'3 (140-440); RED BLOOD COUNT 5.38 X10'6 (4.70-6.10); RED CELL DISTRIBUTION WIDTH 17.2 % (11.5-14.5); WHITE BLOOD COUNT 6.6 X10'3 (4.5-11.0)
[2017-07-01 06:48] LABS: ALANINE AMINOTRANSFERASE 34 U/L (12-78); ALBUMIN 1.9 G/DL (3.4-5.0); ALBUMIN/GLOBULIN RATIO 0.3 (1.1-1.5); ALKALINE PHOSPHATASE 116 IU/L (46-116); ANION GAP 8 (8-16); ASPARTATE AMINO TRANSFERASE 40 U/L (10-37); BILIRUBIN,TOTAL 0.8 MG/DL (0.1-1.0); BLOOD UREA NITROGEN 45 MG/DL (7-18); BUN/CREATININE RATIO 23.7 (5.4-32.0); CALCIUM 7.9 MG/DL (8.5-10.1); CHLORIDE 105 MMOL/L (99-107); GLUCOSE 149 MG/DL (70-104); MAGNESIUM 1.9 MG/DL (1.5-2.4); POTASSIUM 4.3 MMOL/L (3.5-5.1); SODIUM 137 MMOL/L (135-145); TOTAL PROTEIN 7.5 G/DL (6.4-8.2); eGFR 37 ML/MIN
[2017-07-01] MEDS: K and/or MAG REPLACEMENT MC SCH (08:00)
[2017-07-01] MEDS: aspirin 81mg tablet.DR PO SCH (09:22)
[2017-07-01] MEDS: lactobacillus rhamnosus 10,000 MMU CELLS/CAPSULE PO SCH ×2 (09:22→17:26)
[2017-07-01] MEDS: carVEDilol 3.125mg tablet PO SCH ×2 (09:22→19:06)
[2017-07-01] MEDS: lisinopril 20mg tablet PO SCH (09:22)
[2017-07-01] MEDS: furosemide 20MG tablet PO SCH ×2 (09:22→19:06)
[2017-07-01] MEDS: insulin Lispro (HumaLOG) vial - multi-dose SQ SCH ×2 (09:26→19:02)
[2017-07-01] MEDS: enoxaparin 30mg/0.3ml syringe SUBCUT SCH ×2 (09:27→21:34)
[2017-07-01 09:32] LABS: INR 1.2 INR
[2017-07-01 10:00] VITALS: BP 116/84
[2017-07-01 14:00] VITALS: BP 112/80
[2017-07-01] MEDS: mag hydrox/Alum hydrox/simeth 30ml oral suspension PO PRN ×2 (14:48→19:05)
[2017-07-01 18:00] VITALS: BP 124/88
[2017-07-01] MEDS ORDERED: warfarin 5mg tablet PO ONE (21:00)
[2017-07-01] MEDS: insulin glargine (Lantus) pen - multi-dose SQ SCH (21:27)
[2017-07-01] MEDS: enoxaparin 60mg/0.6ml syringe SUBCUT SCH (21:34)
[2017-07-01 22:00] VITALS: BP 140/75
[2017-07-02 02:00] VITALS: BP 123/85
[2017-07-02] MEDS: mag hydrox/Alum hydrox/simeth 30ml oral suspension PO PRN ×2 (02:13→13:02)
[2017-07-02] MEDS: clindamycin 150mg capsule PO SCH ×4 (02:13→21:03)
[2017-07-02] MEDS: HYDROcodone/acetaminophen 10/325mg tab PO PRN ×2 (02:15→18:57)
[2017-07-02 06:00] VITALS: BP 116/89
[2017-07-02 06:10] LABS: BASOPHILS # (AUTO) 0.1 X10'3 (0-0.2); BASOPHILS % (AUTO) 0.9 % (0-1); EOSINOPHILS # (AUTO) 0.2 X10'3 (0-0.9); EOSINOPHILS % (AUTO) 3.5 % (0-6); HEMATOCRIT 45.3 % (42.0-52.0); HEMOGLOBIN 15.1 g/dl (14.0-17.9); LYMPHOCYTES # (AUTO) 1.8 X10'3 (1.1-4.8); LYMPHOCYTES % (AUTO) 27.7 % (21-51); MEAN CORPUSCULAR HEMOGLOBIN 28.5 PG (27.0-31.0); MEAN CORPUSCULAR HGB CONC 33.3 % (33.0-36.5); MEAN CORPUSCULAR VOLUME 85.5 FL (78-98); MEAN PLATELET VOLUME 8.1 FL (7.4-10.4); MONOCYTES # (AUTO) 0.5 X10'3 (0-0.9); NEUTROPHILS # (AUTO) 3.9 X10'3 (1.8-7.7); NEUTROPHILS % (AUTO) 59.9 % (42-75); PLATELET COUNT 229 X10'3 (140-440); RED BLOOD COUNT 5.29 X10'6 (4.70-6.10); RED CELL DISTRIBUTION WIDTH 17.4 % (11.5-14.5); WHITE BLOOD COUNT 6.5 X10'3 (4.5-11.0)
[2017-07-02 06:21] LABS: INR 1.2 INR; PROTHROMBIN TIME 11.9 SECONDS (9.0-12.0)
[2017-07-02 06:48] LABS: ALANINE AMINOTRANSFERASE 32 U/L (12-78); ALBUMIN/GLOBULIN RATIO 0.4 (1.1-1.5); ALKALINE PHOSPHATASE 122 IU/L (46-116); ANION GAP 9 (8-16); ASPARTATE AMINO TRANSFERASE 44 U/L (10-37); BILIRUBIN,TOTAL 0.7 MG/DL (0.1-1.0); BLOOD UREA NITROGEN 44 MG/DL (7-18); BUN/CREATININE RATIO 24.4 (5.4-32.0); CHLORIDE 104 MMOL/L (99-107); GLUCOSE 124 MG/DL (70-104); POTASSIUM 4.5 MMOL/L (3.5-5.1); SODIUM 138 MMOL/L (135-145); TOTAL CARBON DIOXIDE 25.1 MMOL/L (24-32); TOTAL PROTEIN 7.7 G/DL (6.4-8.2); eGFR 39 ML/MIN
[2017-07-02] MEDS: K and/or MAG REPLACEMENT MC SCH (07:19)
[2017-07-02 07:27] VITALS: BP 139/94
[2017-07-02] MEDS: aspirin 81mg tablet.DR PO SCH (07:27)
[2017-07-02] MEDS: lactobacillus rhamnosus 10,000 MMU CELLS/CAPSULE PO SCH ×2 (07:27→17:10)
[2017-07-02] MEDS: carVEDilol 3.125mg tablet PO SCH ×2 (07:27→21:03)
[2017-07-02] MEDS: lisinopril 20mg tablet PO SCH (07:28)
[2017-07-02] MEDS: enoxaparin 30mg/0.3ml syringe SUBCUT SCH ×2 (07:28→21:02)
[2017-07-02] MEDS: enoxaparin 60mg/0.6ml syringe SUBCUT SCH ×2 (07:28→21:03)
[2017-07-02] MEDS: furosemide 20MG tablet PO SCH ×2 (07:28→21:03)
[2017-07-02] MEDS: insulin Lispro (HumaLOG) vial - multi-dose SQ SCH ×3 (08:58→19:46)
[2017-07-02 10:00] VITALS: BP 119/79
[2017-07-02 18:00] VITALS: BP 121/80
[2017-07-02] MEDS ORDERED: warfarin 5mg tablet PO ONE (21:00)
[2017-07-02 22:00] VITALS: BP 140/72
[2017-07-02] MEDS: insulin glargine (Lantus) pen - multi-dose SQ SCH (22:51)
[2017-07-03] MEDS: clindamycin 150mg capsule PO SCH ×6 (02:42→19:03)
[2017-07-03 06:00] VITALS: BP 131/72
[2017-07-03 06:39] LABS: INR 1.2 INR; PROTHROMBIN TIME 12.6 SECONDS (9.0-12.0)
[2017-07-03 06:41] LABS: BASOPHILS % (AUTO) 0.8 % (0-1); EOSINOPHILS # (AUTO) 0.2 X10'3 (0-0.9); EOSINOPHILS % (AUTO) 3.8 % (0-6); HEMATOCRIT 45.7 % (42.0-52.0); HEMOGLOBIN 15.2 g/dl (14.0-17.9); LYMPHOCYTES # (AUTO) 1.9 X10'3 (1.1-4.8); LYMPHOCYTES % (AUTO) 34.3 % (21-51); MEAN CORPUSCULAR HEMOGLOBIN 28.3 PG (27.0-31.0); MEAN CORPUSCULAR HGB CONC 33.3 % (33.0-36.5); MEAN CORPUSCULAR VOLUME 85.1 FL (78-98); MEAN PLATELET VOLUME 8.3 FL (7.4-10.4); MONOCYTES # (AUTO) 0.4 X10'3 (0-0.9); MONOCYTES % (AUTO) 7.5 % (2-12); NEUTROPHILS % (AUTO) 53.6 % (42-75); PLATELET COUNT 213 X10'3 (140-440); RED BLOOD COUNT 5.37 X10'6 (4.70-6.10); RED CELL DISTRIBUTION WIDTH 17.3 % (11.5-14.5); WHITE BLOOD COUNT 5.6 X10'3 (4.5-11.0)
[2017-07-03 06:54] LABS: ALANINE AMINOTRANSFERASE 32 U/L (12-78); ALBUMIN 2.1 G/DL (3.4-5.0); ALBUMIN/GLOBULIN RATIO 0.4 (1.1-1.5); ALKALINE PHOSPHATASE 124 IU/L (46-116); ANION GAP 8 (8-16); ASPARTATE AMINO TRANSFERASE 45 U/L (10-37); BILIRUBIN,TOTAL 0.7 MG/DL (0.1-1.0); BLOOD UREA NITROGEN 40 MG/DL (7-18); CALCIUM 8.4 MG/DL (8.5-10.1); CHLORIDE 104 MMOL/L (99-107); CREATININE 1.38 MG/DL (0.60-1.10); GLUCOSE 134 MG/DL (70-104); POTASSIUM 4.6 MMOL/L (3.5-5.1); SODIUM 140 MMOL/L (135-145); TOTAL CARBON DIOXIDE 28.4 MMOL/L (24-32); TOTAL PROTEIN 8.1 G/DL (6.4-8.2); eGFR 53 ML/MIN
[2017-07-03 07:49] VITALS: BP 141/116
[2017-07-03] MEDS: neomy sulf/bacitrac zn/polymixin b oint 14.2 gm tube TP SCH (08:00)
[2017-07-03] MEDS: K and/or MAG REPLACEMENT MC SCH (08:00)
[2017-07-03] MEDS: lactobacillus rhamnosus 10,000 MMU CELLS/CAPSULE PO SCH ×2 (09:19→18:48)
[2017-07-03] MEDS: furosemide 20MG tablet PO SCH ×2 (09:19→19:03)
[2017-07-03] MEDS: aspirin 81mg tablet.DR PO SCH (09:20)
[2017-07-03] MEDS: carVEDilol 3.125mg tablet PO SCH ×2 (09:20→20:12)
[2017-07-03] MEDS: enoxaparin 60mg/0.6ml syringe SUBCUT SCH ×2 (09:20→20:10)
[2017-07-03] MEDS: lisinopril 20mg tablet PO SCH (09:20)
[2017-07-03] MEDS: enoxaparin 30mg/0.3ml syringe SUBCUT SCH ×2 (09:21→20:11)
[2017-07-03] MEDS: insulin Lispro (HumaLOG) vial - multi-dose SQ SCH ×2 (09:33→14:11)
[2017-07-03] MEDS: HYDROcodone/acetaminophen 10/325mg tab PO PRN ×2 (09:36→19:04)
[2017-07-03 10:00] VITALS: BP 140/89
[2017-07-03 18:00] VITALS: BP 135/97
[2017-07-03] MEDS ORDERED: warfarin 3mg tablet PO ONE (21:00)
[2017-07-03] MEDS: insulin glargine (Lantus) pen - multi-dose SQ SCH (21:12)
[2017-07-03 22:00] VITALS: BP 116/77
[2017-07-04] MEDS: clindamycin 150mg capsule PO SCH ×4 (01:37→19:10)
[2017-07-04 05:56] LABS: BASOPHILS # (AUTO) 0.1 X10'3 (0-0.2); BASOPHILS % (AUTO) 0.9 % (0-1); EOSINOPHILS # (AUTO) 0.2 X10'3 (0-0.9); EOSINOPHILS % (AUTO) 3.7 % (0-6); HEMATOCRIT 47.3 % (42.0-52.0); HEMOGLOBIN 15.7 g/dl (14.0-17.9); LYMPHOCYTES # (AUTO) 2.3 X10'3 (1.1-4.8); LYMPHOCYTES % (AUTO) 38.5 % (21-51); MEAN CORPUSCULAR HEMOGLOBIN 28.3 PG (27.0-31.0); MEAN CORPUSCULAR HGB CONC 33.2 % (33.0-36.5); MEAN CORPUSCULAR VOLUME 85.1 FL (78-98); MEAN PLATELET VOLUME 8.5 FL (7.4-10.4); MONOCYTES # (AUTO) 0.5 X10'3 (0-0.9); MONOCYTES % (AUTO) 7.7 % (2-12); NEUTROPHILS # (AUTO) 2.9 X10'3 (1.8-7.7); NEUTROPHILS % (AUTO) 49.2 % (42-75); PLATELET COUNT 200 X10'3 (140-440); RED BLOOD COUNT 5.56 X10'6 (4.70-6.10); RED CELL DISTRIBUTION WIDTH 17.4 % (11.5-14.5); WHITE BLOOD COUNT 5.9 X10'3 (4.5-11.0)
[2017-07-04 06:00] VITALS: BP 131/87
[2017-07-04 06:03] LABS: INR 1.5 INR; PROTHROMBIN TIME 15.5 SECONDS (9.0-12.0)
[2017-07-04 06:11] LABS: ALANINE AMINOTRANSFERASE 32 U/L (12-78); ALBUMIN 2.1 G/DL (3.4-5.0); ALBUMIN/GLOBULIN RATIO 0.4 (1.1-1.5); ALKALINE PHOSPHATASE 120 IU/L (46-116); ANION GAP 9 (8-16); ASPARTATE AMINO TRANSFERASE 39 U/L (10-37); BILIRUBIN,TOTAL 0.8 MG/DL (0.1-1.0); BLOOD UREA NITROGEN 39 MG/DL (7-18); BUN/CREATININE RATIO 23.6 (5.4-32.0); CALCIUM 8.4 MG/DL (8.5-10.1); CHLORIDE 103 MMOL/L (99-107); CREATININE 1.65 MG/DL (0.60-1.10); GLUCOSE 103 MG/DL (70-104); MAGNESIUM 2.1 MG/DL (1.5-2.4); POTASSIUM 4.5 MMOL/L (3.5-5.1); SODIUM 141 MMOL/L (135-145); TOTAL CARBON DIOXIDE 28.8 MMOL/L (24-32); eGFR 43 ML/MIN
[2017-07-04] MEDS: K and/or MAG REPLACEMENT MC SCH (08:00)
[2017-07-04] MEDS: neomy sulf/bacitrac zn/polymixin b oint 14.2 gm tube TP SCH (08:00)
[2017-07-04] MEDS: insulin Lispro (HumaLOG) vial - multi-dose SQ SCH ×3 (09:33→19:53)
[2017-07-04] MEDS: lactobacillus rhamnosus 10,000 MMU CELLS/CAPSULE PO SCH ×2 (09:35→17:43)
[2017-07-04] MEDS: aspirin 81mg tablet.DR PO SCH (09:35)
[2017-07-04] MEDS: furosemide 20MG tablet PO SCH ×2 (09:35→19:10)
[2017-07-04] MEDS: carVEDilol 3.125mg tablet PO SCH ×2 (09:35→19:11)
[2017-07-04] MEDS: lisinopril 20mg tablet PO SCH (09:36)
[2017-07-04] MEDS: enoxaparin 30mg/0.3ml syringe SUBCUT SCH ×2 (09:36→20:58)
[2017-07-04] MEDS: enoxaparin 60mg/0.6ml syringe SUBCUT SCH ×2 (09:37→20:58)
[2017-07-04] MEDS: HYDROcodone/acetaminophen 10/325mg tab PO PRN (09:52)
[2017-07-04 10:00] VITALS: BP 121/87
[2017-07-04] MEDS ORDERED: COU5T PO (13:48)
[2017-07-04 18:00] VITALS: BP 107/71
[2017-07-04] MEDS ORDERED: warfarin 7.5mg tablet PO ONE (21:00)
[2017-07-04] MEDS: insulin glargine (Lantus) pen - multi-dose SQ SCH (21:06)
[2017-07-04 22:00] VITALS: BP 121/82
[2017-07-05] MEDS: clindamycin 150mg capsule PO SCH (01:53)
[2017-07-05] MEDS: HYDROcodone/acetaminophen 10/325mg tab PO PRN ×2 (05:03→16:31)
[2017-07-05 06:00] VITALS: BP 115/90
[2017-07-05 06:24] LABS: BASOPHILS % (AUTO) 0.7 % (0-1); EOSINOPHILS # (AUTO) 0.3 X10'3 (0-0.9); EOSINOPHILS % (AUTO) 4.5 % (0-6); HEMOGLOBIN 15.2 g/dl (14.0-17.9); LYMPHOCYTES # (AUTO) 2.1 X10'3 (1.1-4.8); LYMPHOCYTES % (AUTO) 33.7 % (21-51); MEAN CORPUSCULAR HEMOGLOBIN 28.1 PG (27.0-31.0); MEAN CORPUSCULAR HGB CONC 33.1 % (33.0-36.5); MEAN PLATELET VOLUME 8.3 FL (7.4-10.4); MONOCYTES # (AUTO) 0.5 X10'3 (0-0.9); MONOCYTES % (AUTO) 8.2 % (2-12); NEUTROPHILS # (AUTO) 3.3 X10'3 (1.8-7.7); NEUTROPHILS % (AUTO) 52.9 % (42-75); PLATELET COUNT 214 X10'3 (140-440); RED BLOOD COUNT 5.42 X10'6 (4.70-6.10); RED CELL DISTRIBUTION WIDTH 16.9 % (11.5-14.5); WHITE BLOOD COUNT 6.3 X10'3 (4.5-11.0)
[2017-07-05 06:32] LABS: INR 3.4 INR; PROTHROMBIN TIME 33.5 SECONDS (9.0-12.0)
[2017-07-05 06:57] LABS: ALANINE AMINOTRANSFERASE 34 U/L (12-78); ALBUMIN 2.1 G/DL (3.4-5.0); ALBUMIN/GLOBULIN RATIO 0.4 (1.1-1.5); ALKALINE PHOSPHATASE 122 IU/L (46-116); ANION GAP 11 (8-16); ASPARTATE AMINO TRANSFERASE 42 U/L (10-37); BILIRUBIN,TOTAL 0.6 MG/DL (0.1-1.0); BLOOD UREA NITROGEN 46 MG/DL (7-18); BUN/CREATININE RATIO 22.3 (5.4-32.0); CALCIUM 7.8 MG/DL (8.5-10.1); CHLORIDE 102 MMOL/L (99-107); CREATININE 2.06 MG/DL (0.60-1.10); GLUCOSE 112 MG/DL (70-104); POTASSIUM 4.6 MMOL/L (3.5-5.1); SODIUM 139 MMOL/L (135-145); TOTAL CARBON DIOXIDE 26.2 MMOL/L (24-32); TOTAL PROTEIN 7.8 G/DL (6.4-8.2); eGFR 33 ML/MIN
[2017-07-05] MEDS: K and/or MAG REPLACEMENT MC SCH (08:00)
[2017-07-05] MEDS: neomy sulf/bacitrac zn/polymixin b oint 14.2 gm tube TP SCH (08:00)
[2017-07-05] MEDS: insulin Lispro (HumaLOG) vial - multi-dose SQ SCH ×3 (09:17→18:33)
[2017-07-05] MEDS: lisinopril 20mg tablet PO SCH (09:19)
[2017-07-05] MEDS: aspirin 81mg tablet.DR PO SCH (09:19)
[2017-07-05] MEDS: lactobacillus rhamnosus 10,000 MMU CELLS/CAPSULE PO SCH ×2 (09:19→17:19)
[2017-07-05] MEDS: carVEDilol 3.125mg tablet PO SCH ×2 (09:20→20:19)
[2017-07-05 10:00] VITALS: BP 108/72
[2017-07-05] MEDS: mag hydrox/Alum hydrox/simeth 30ml oral suspension PO PRN (12:41)
[2017-07-05] MEDS: furosemide 20MG tablet PO SCH (12:41)
[2017-07-05 18:00] VITALS: BP 134/87
[2017-07-05] MEDS ORDERED: MESSAGE TO NURSING PO NR (18:00)
[2017-07-05] MEDS: insulin glargine (Lantus) pen - multi-dose SQ SCH (20:21)
[2017-07-05 22:00] VITALS: BP 112/68
[2017-07-06 05:59] LABS: BASOPHILS # (AUTO) 0.1 X10'3 (0-0.2); BASOPHILS % (AUTO) 0.9 % (0-1); EOSINOPHILS # (AUTO) 0.4 X10'3 (0-0.9); EOSINOPHILS % (AUTO) 4.4 % (0-6); HEMATOCRIT 49.5 % (42.0-52.0); HEMOGLOBIN 16.1 g/dl (14.0-17.9); LYMPHOCYTES # (AUTO) 1.9 X10'3 (1.1-4.8); LYMPHOCYTES % (AUTO) 22.7 % (21-51); MEAN CORPUSCULAR HEMOGLOBIN 27.9 PG (27.0-31.0); MEAN CORPUSCULAR HGB CONC 32.6 % (33.0-36.5); MEAN CORPUSCULAR VOLUME 85.7 FL (78-98); MEAN PLATELET VOLUME 8.5 FL (7.4-10.4); MONOCYTES # (AUTO) 0.7 X10'3 (0-0.9); MONOCYTES % (AUTO) 8.2 % (2-12); NEUTROPHILS # (AUTO) 5.4 X10'3 (1.8-7.7); NEUTROPHILS % (AUTO) 63.8 % (42-75); PLATELET COUNT 185 X10'3 (140-440); RED BLOOD COUNT 5.78 X10'6 (4.70-6.10); RED CELL DISTRIBUTION WIDTH 17.4 % (11.5-14.5); WHITE BLOOD COUNT 8.4 X10'3 (4.5-11.0)
[2017-07-06 06:44] LABS: ALANINE AMINOTRANSFERASE 33 U/L (12-78); ALBUMIN 2.2 G/DL (3.4-5.0); ALBUMIN/GLOBULIN RATIO 0.4 (1.1-1.5); ALKALINE PHOSPHATASE 125 IU/L (46-116); ANION GAP 11 (8-16); ASPARTATE AMINO TRANSFERASE 47 U/L (10-37); BILIRUBIN,TOTAL 0.7 MG/DL (0.1-1.0); BLOOD UREA NITROGEN 41 MG/DL (7-18); BUN/CREATININE RATIO 22.8 (5.4-32.0); CALCIUM 8.1 MG/DL (8.5-10.1); CHLORIDE 102 MMOL/L (99-107); GLUCOSE 71 MG/DL (70-104); POTASSIUM 4.9 MMOL/L (3.5-5.1); SODIUM 139 MMOL/L (135-145); TOTAL CARBON DIOXIDE 26.5 MMOL/L (24-32); TOTAL PROTEIN 8.2 G/DL (6.4-8.2); eGFR 39 ML/MIN
[2017-07-06] MEDS: lactobacillus rhamnosus 10,000 MMU CELLS/CAPSULE PO SCH (07:46)
[2017-07-06] MEDS: furosemide 20MG tablet PO SCH (07:46)
[2017-07-06] MEDS: aspirin 81mg tablet.DR PO SCH (07:46)
[2017-07-06] MEDS: lisinopril 20mg tablet PO SCH (07:47)
[2017-07-06] MEDS: neomy sulf/bacitrac zn/polymixin b oint 14.2 gm tube TP SCH (07:47)
[2017-07-06] MEDS: carVEDilol 3.125mg tablet PO SCH (07:47)
[2017-07-06] MEDS: K and/or MAG REPLACEMENT MC SCH (08:00)
[2017-07-06 08:39] VITALS: BP 141/93
[2017-07-06 11:36] LABS: INR 2.6 INR; PROTHROMBIN TIME 25.6 SECONDS (9.0-12.0)
[2017-07-06 12:25] VITALS: BP 132/83
[2017-07-06] MEDS ORDERED: warfarin 5mg tablet PO ONE (21:00)
== END 2017-07-06 13:40 | disposition home or self-care (01) | DRG 45 ==
LOC: ER 18:56 → ED HOLD 23:20 → ORTHO 4S 06-29 00:18
PROVIDERS: ADMIT Internal Medicine; ATTEND Family Medicine
DX: I63.511 Cerebral infarction due to unspecified occlusion or stenosis of right middle cerebral artery (principal); E43 Unspecified severe protein-calorie malnutrition; N17.9 Acute kidney failure, unspecified; D68.9 Coagulation defect, unspecified; I42.8 Other cardiomyopathies; I13.0 Hypertensive heart and chronic kidney disease with heart failure and stage 1 through stage 4 chronic kidney disease, or unspecified chronic kidney disease; I50.20 Unspecified systolic (congestive) heart failure; E11.22 Type 2 diabetes mellitus with diabetic chronic kidney disease; E11.51 Type 2 diabetes mellitus with diabetic peripheral angiopathy without gangrene; E11.65 Type 2 diabetes mellitus with hyperglycemia; I51.3 Intracardiac thrombosis, not elsewhere classified; R47.01 Aphasia; E87.5 Hyperkalemia; N18.9 Chronic kidney disease, unspecified; R32 Unspecified urinary incontinence; R00.0 Tachycardia, unspecified; Z60.2 Problems related to living alone; B19.20 Unspecified viral hepatitis C without hepatic coma; I70.202 Unspecified atherosclerosis of native arteries of extremities, left leg; I70.291 Other atherosclerosis of native arteries of extremities, right leg; Z68.30 Body mass index [BMI] 30.0-30.9, adult; Z79.01 Long term (current) use of anticoagulants; Z79.4 Long term (current) use of insulin; Z79.899 Other long term (current) drug therapy; Z86.73 Personal history of transient ischemic attack (TIA), and cerebral infarction without residual deficits; Z87.891 Personal history of nicotine dependence; Z71.6 Tobacco abuse counseling; Z88.0 Allergy status to penicillin; Z88.6 Allergy status to analgesic agent; Z59.0 Homelessness; Z56.0 Unemployment, unspecified
CPT/HCPCS: 36415; 70450; 70544; 70551; 71045; 80053; 80061; 80305; 80320; 80329; 81001; 82948; 83036; 83735; 84484; 85025; 85610; 85651; 85730; 87070; 92616; 93005; 93306; 93880; 93922; 93925; 97162; 97530; 99285; J1644; J1650; J1815; J2405; J7030

== ENCOUNTER 2017-07-19 13:16 | Inpatient (IN) | payer MEDICAID ==
[~2017-07-19] VITALS: Ht 172.7 cm; Wt 82.2 kg
[~2017-07-19 13:16] MED LIST changes: -CLIN-80 PO; +COU5T PO; -POTA20TA19 PO
[2017-07-19] MEDS ORDERED: normal saline 1000ML IV soln IVB ONE (13:35)
[2017-07-19] MEDS ORDERED: ipratropium/albuterol 3ml nebule NEB ONE (13:35)
[2017-07-19] MEDS ORDERED: methylPREDNISolone sod succ 125mg/2ml vial IV ONE (13:35)
[2017-07-19 14:09] LABS: BASOPHILS % (AUTO) 0.6 % (0-1); EOSINOPHILS # (AUTO) 0.2 X10'3 (0-0.9); EOSINOPHILS % (AUTO) 2.8 % (0-6); HEMATOCRIT 55.6 % (42.0-52.0); HEMOGLOBIN 17.6 g/dl (14.0-17.9); LYMPHOCYTES # (AUTO) 1.7 X10'3 (1.1-4.8); LYMPHOCYTES % (AUTO) 21.7 % (21-51); MEAN CORPUSCULAR HGB CONC 31.7 % (33.0-36.5); MEAN CORPUSCULAR VOLUME 85.1 FL (78-98); MEAN PLATELET VOLUME 8.3 FL (7.4-10.4); MONOCYTES # (AUTO) 0.4 X10'3 (0-0.9); MONOCYTES % (AUTO) 4.5 % (2-12); NEUTROPHILS # (AUTO) 5.5 X10'3 (1.8-7.7); NEUTROPHILS % (AUTO) 70.4 % (42-75); PLATELET COUNT 166 X10'3 (140-440); RED BLOOD COUNT 6.53 X10'6 (4.70-6.10); RED CELL DISTRIBUTION WIDTH 18.6 % (11.5-14.5); WHITE BLOOD COUNT 7.8 X10'3 (4.5-11.0)
[2017-07-19 14:39] LABS: INR 2.9 INR; PARTIAL THROMBOPLASTIN TIME 31 SECONDS (22-32); PROTHROMBIN TIME 28.8 SECONDS (9.0-12.0)
[2017-07-19 14:51] LABS: ALANINE AMINOTRANSFERASE 38 U/L (12-78); ALBUMIN 2.5 G/DL (3.4-5.0); ALBUMIN/GLOBULIN RATIO 0.4 (1.1-1.5); ALKALINE PHOSPHATASE 147 IU/L (46-116); ANION GAP 7 (8-16); ASPARTATE AMINO TRANSFERASE 48 U/L (10-37); BILIRUBIN,TOTAL 1.6 MG/DL (0.1-1.0); BLOOD UREA NITROGEN 29 MG/DL (7-18); BUN/CREATININE RATIO 19.1 (5.4-32.0); CALCIUM 8.8 MG/DL (8.5-10.1); CHLORIDE 104 MMOL/L (99-107); CREATININE 1.52 MG/DL (0.60-1.10); GLUCOSE 157 MG/DL (70-104); POTASSIUM 5.1 MMOL/L (3.5-5.1); SODIUM 138 MMOL/L (135-145); TOTAL PROTEIN 9.4 G/DL (6.4-8.2); eGFR 48 ML/MIN
[2017-07-19] MEDS ORDERED: albuterol 2.5 MG/3 ML nebule NEB ONE (14:55)
[2017-07-19] MEDS ORDERED: albuterol 2.5 MG/3 ML nebule NEB PRN (16:40)
[2017-07-19] MEDS ORDERED: glucagon, human recombinant 1mg kit SUBCUT PRN (16:40)
[2017-07-19] MEDS ORDERED: potassium Cl 20 mEq SR tablet PO PRN ×2 (16:40)
[2017-07-19] MEDS ORDERED: ondansetron/PF 4mg/2ml inj IV PRN (16:40)
[2017-07-19] MEDS ORDERED: MESSAGE TO PHARMACY PO ONE (16:40)
[2017-07-19] MEDS ORDERED: magnesium 2GM in 50ml NS 50 ML IV PRN (16:40)
[2017-07-19] MEDS ORDERED: dextrose ORAL solution 15 GM/59 ML bottle PO PRN ×2 (16:40)
[2017-07-19] MEDS ORDERED: magnesium 4gm in 100ml NS 100 ML IV PRN (16:40)
[2017-07-19] MEDS ORDERED: dextrose 50%-water 50ml dispensing syringe IV PRN ×2 (16:40)
[2017-07-19] MEDS ORDERED: potassium Cl 40MEQ/NS 500ml 500 ML IV PRN ×2 (16:40)
[2017-07-19] MEDS ORDERED: magnesium Cl slow-release 64mg tablet PO PRN (16:40)
[2017-07-19] MEDS ORDERED: acetaminophen 325mg tablet PO PRN (16:40)
[2017-07-19] MEDS ORDERED: magnesium hydroxide 30ml (MOM) UD suspension PO PRN (16:40)
[2017-07-19 18:20] LABS: HEMOGLOBIN A1C 8.3 % (4.5-6.2)
[2017-07-19 18:40] VITALS: BP 131/87
[2017-07-19] MEDS ORDERED: furosemide 10 MG/1 ML 10ml inj IV ONE ×2 (20:00)
[2017-07-19] MEDS ORDERED: ipratropium 0.5 MG/2.5ML nebule IH SCH (20:00)
[2017-07-19] MEDS ORDERED: albuterol 2.5 MG/3 ML nebule NEB SCH (20:00)
[2017-07-19] MEDS ORDERED: heparin, porcine 5000 units/ml vial SQ SCH (20:00)
[2017-07-19] MEDS: ipratropium/albuterol 3ml nebule NEB SCH (20:43)
[2017-07-19] MEDS ORDERED: temazepam 15mg capsule PO PRN (21:00)
[2017-07-19] MEDS ORDERED: Insulin Detemir pen SQ SCH (21:00)
[2017-07-19] MEDS: carVEDilol 3.125mg tablet PO SCH (21:00)
[2017-07-19] MEDS ORDERED: HYDROcodone/acetaminophen 5mg/325mg tablet PO PRN (21:25)
[2017-07-19] MEDS: insulin glargine (Lantus) pen - multi-dose SQ SCH (21:57)
[2017-07-20 02:00] LABS: INR 2.5 INR; PROTHROMBIN TIME 24.7 SECONDS (9.0-12.0)
[2017-07-20 02:04] LABS: BASOPHILS % (AUTO) 0.1 % (0-1); EOSINOPHILS # (AUTO) 0.1 X10'3 (0-0.9); HEMATOCRIT 43.9 % (42.0-52.0); HEMOGLOBIN 14.4 g/dl (14.0-17.9); LYMPHOCYTES # (AUTO) 0.5 X10'3 (1.1-4.8); LYMPHOCYTES % (AUTO) 7.8 % (21-51); MEAN CORPUSCULAR HEMOGLOBIN 27.7 PG (27.0-31.0); MEAN CORPUSCULAR HGB CONC 32.7 % (33.0-36.5); MEAN CORPUSCULAR VOLUME 84.8 FL (78-98); MEAN PLATELET VOLUME 8.4 FL (7.4-10.4); MONOCYTES # (AUTO) 0.1 X10'3 (0-0.9); MONOCYTES % (AUTO) 0.9 % (2-12); NEUTROPHILS # (AUTO) 5.4 X10'3 (1.8-7.7); NEUTROPHILS % (AUTO) 90.2 % (42-75); PLATELET COUNT 147 X10'3 (140-440); RED BLOOD COUNT 5.18 X10'6 (4.70-6.10); RED CELL DISTRIBUTION WIDTH 18.1 % (11.5-14.5); WHITE BLOOD COUNT 5.9 X10'3 (4.5-11.0)
[2017-07-20] MEDS: ipratropium/albuterol 3ml nebule NEB SCH ×4 (03:27→20:12)
[2017-07-20 05:31] LABS: ANION GAP 12 (8-16); BLOOD UREA NITROGEN 33 MG/DL (7-18); BUN/CREATININE RATIO 20.2 (5.4-32.0); CALCIUM 7.9 MG/DL (8.5-10.1); CHLORIDE 103 MMOL/L (99-107); CREATININE 1.63 MG/DL (0.60-1.10); GLUCOSE 256 MG/DL (70-104); MAGNESIUM 1.8 MG/DL (1.5-2.4); PHOSPHORUS 3.9 MG/DL (2.3-4.5); POTASSIUM 4.9 MMOL/L (3.5-5.1); SODIUM 137 MMOL/L (135-145); TOTAL CARBON DIOXIDE 22.1 MMOL/L (24-32); eGFR 44 ML/MIN
[2017-07-20 06:00] VITALS: BP 129/87
[2017-07-20] MEDS ORDERED: pantoprazole 40mg Tablet.DR PO SCH (07:30)
[2017-07-20] MEDS: K and/or MAG REPLACEMENT MC SCH (07:41)
[2017-07-20] MEDS: pantoprazole 40mg Tablet.DR PO SCH (07:43)
[2017-07-20] MEDS: carVEDilol 3.125mg tablet PO SCH ×2 (07:44→21:26)
[2017-07-20] MEDS: aspirin 81mg tablet.DR PO SCH (07:45)
[2017-07-20] MEDS: furosemide 40mg/4ml inj IV SCH ×2 (07:45→22:28)
[2017-07-20] MEDS: lisinopril 5mg tablet PO SCH (07:50)
[2017-07-20] MEDS ORDERED: warfarin 5mg tablet PO SCH (08:00)
[2017-07-20] MEDS: insulin Lispro (HumaLOG) vial - multi-dose SQ SCH ×3 (08:59→19:30)
[2017-07-20 10:00] VITALS: BP 118/73
[2017-07-20] MEDS: mag hydrox/Alum hydrox/simeth 30ml oral suspension PO PRN (11:43)
[2017-07-20] MEDS: HYDROcodone/acetaminophen 10/325mg tab PO PRN ×2 (11:53→21:28)
[2017-07-20] MEDS ORDERED: methylPREDNISolone sod succ 125mg/2ml vial IV ONE ×2 (13:00)
[2017-07-20 14:34] LABS: PARTIAL THROMBOPLASTIN TIME 32 SECONDS (22-32); PROTHROMBIN TIME 20.3 SECONDS (9.0-12.0)
[2017-07-20 18:00] VITALS: BP 103/67
[2017-07-20] MEDS ORDERED: warfarin 5mg tablet PO ONE (21:00)
[2017-07-20] MEDS: insulin glargine (Lantus) pen - multi-dose SQ SCH (21:35)
[2017-07-20 22:00] VITALS: BP 106/74
[2017-07-21] MEDS: ipratropium/albuterol 3ml nebule NEB SCH ×4 (03:05→21:16)
[2017-07-21 06:00] VITALS: BP 101/66
[2017-07-21 06:01] LABS: BASOPHILS % (AUTO) 0 % (0-1); EOSINOPHILS # (AUTO) 0.1 X10'3 (0-0.9); EOSINOPHILS % (AUTO) 0.4 % (0-6); HEMATOCRIT 42.9 % (42.0-52.0); HEMOGLOBIN 14.1 g/dl (14.0-17.9); LYMPHOCYTES # (AUTO) 0.8 X10'3 (1.1-4.8); LYMPHOCYTES % (AUTO) 6.2 % (21-51); MEAN CORPUSCULAR HEMOGLOBIN 27.4 PG (27.0-31.0); MEAN CORPUSCULAR VOLUME 83.2 FL (78-98); MONOCYTES # (AUTO) 0.3 X10'3 (0-0.9); MONOCYTES % (AUTO) 2.6 % (2-12); NEUTROPHILS # (AUTO) 11.9 X10'3 (1.8-7.7); NEUTROPHILS % (AUTO) 90.8 % (42-75); PLATELET COUNT 152 X10'3 (140-440); RED BLOOD COUNT 5.15 X10'6 (4.70-6.10); RED CELL DISTRIBUTION WIDTH 18.1 % (11.5-14.5); WHITE BLOOD COUNT 13.1 X10'3 (4.5-11.0)
[2017-07-21 06:10] LABS: INR 2.1 INR; PROTHROMBIN TIME 20.9 SECONDS (9.0-12.0)
[2017-07-21 06:17] LABS: ALBUMIN 1.7 G/DL (3.4-5.0); ANION GAP 6 (8-16); BLOOD UREA NITROGEN 45 MG/DL (7-18); BUN/CREATININE RATIO 28.5 (5.4-32.0); CHLORIDE 103 MMOL/L (99-107); CREATININE 1.58 MG/DL (0.60-1.10); GLUCOSE 173 MG/DL (70-104); MAGNESIUM 1.8 MG/DL (1.5-2.4); PHOSPHORUS 3.5 MG/DL (2.3-4.5); POTASSIUM 4.5 MMOL/L (3.5-5.1); SODIUM 139 MMOL/L (135-145); TOTAL CARBON DIOXIDE 29.8 MMOL/L (24-32); eGFR 45 ML/MIN
[2017-07-21] MEDS: K and/or MAG REPLACEMENT MC SCH (07:11)
[2017-07-21] MEDS: lisinopril 5mg tablet PO SCH (07:17)
[2017-07-21] MEDS: aspirin 81mg tablet.DR PO SCH (07:18)
[2017-07-21] MEDS: carVEDilol 3.125mg tablet PO SCH ×2 (07:18→20:43)
[2017-07-21] MEDS: pantoprazole 40mg Tablet.DR PO SCH (07:18)
[2017-07-21] MEDS: HYDROcodone/acetaminophen 10/325mg tab PO PRN ×3 (07:19→16:21)
[2017-07-21] MEDS: furosemide 40mg/4ml inj IV SCH ×2 (07:20→19:01)
[2017-07-21] MEDS: insulin Lispro (HumaLOG) vial - multi-dose SQ SCH ×3 (08:45→19:01)
[2017-07-21 10:00] VITALS: BP 82/50
[2017-07-21] MEDS: mag hydrox/Alum hydrox/simeth 30ml oral suspension PO PRN (13:19)
[2017-07-21 18:00] VITALS: BP 93/65
[2017-07-21] MEDS: emollient combination-Eucerin 250 ML LOTION TP SCH (20:44)
[2017-07-21 20:47] VITALS: BP 110/82
[2017-07-21] MEDS ORDERED: warfarin 5mg tablet PO ONE (21:00)
[2017-07-21] MEDS: insulin glargine (Lantus) pen - multi-dose SQ SCH (21:00)
[2017-07-21 22:00] VITALS: BP 103/66
[2017-07-22] MEDS: ipratropium/albuterol 3ml nebule NEB SCH ×4 (02:45→20:14)
[2017-07-22 05:32] LABS: BASOPHILS % (AUTO) 0.5 % (0-1); EOSINOPHILS # (AUTO) 0.2 X10'3 (0-0.9); EOSINOPHILS % (AUTO) 2.2 % (0-6); HEMOGLOBIN 15.4 g/dl (14.0-17.9); INR 2.7 INR; LYMPHOCYTES # (AUTO) 1.2 X10'3 (1.1-4.8); MEAN CORPUSCULAR HEMOGLOBIN 27.2 PG (27.0-31.0); MEAN CORPUSCULAR HGB CONC 32.7 % (33.0-36.5); MEAN CORPUSCULAR VOLUME 83.3 FL (78-98); MEAN PLATELET VOLUME 8.1 FL (7.4-10.4); MONOCYTES # (AUTO) 0.3 X10'3 (0-0.9); MONOCYTES % (AUTO) 4.2 % (2-12); NEUTROPHILS # (AUTO) 5.4 X10'3 (1.8-7.7); NEUTROPHILS % (AUTO) 76.1 % (42-75); PLATELET COUNT 171 X10'3 (140-440); PROTHROMBIN TIME 26.7 SECONDS (9.0-12.0); RED BLOOD COUNT 5.64 X10'6 (4.70-6.10); RED CELL DISTRIBUTION WIDTH 18.5 % (11.5-14.5); WHITE BLOOD COUNT 7.1 X10'3 (4.5-11.0)
[2017-07-22 05:37] LABS: ALBUMIN 2.1 G/DL (3.4-5.0); ANION GAP 5 (8-16); BLOOD UREA NITROGEN 47 MG/DL (7-18); BUN/CREATININE RATIO 29.9 (5.4-32.0); CALCIUM 7.8 MG/DL (8.5-10.1); CHLORIDE 103 MMOL/L (99-107); CREATININE 1.57 MG/DL (0.60-1.10); GLUCOSE 96 MG/DL (70-104); MAGNESIUM 1.7 MG/DL (1.5-2.4); PHOSPHORUS 3.3 MG/DL (2.3-4.5); POTASSIUM 4.4 MMOL/L (3.5-5.1); SODIUM 138 MMOL/L (135-145); TOTAL CARBON DIOXIDE 29.8 MMOL/L (24-32); eGFR 46 ML/MIN
[2017-07-22 06:00] VITALS: BP 124/89
[2017-07-22] MEDS: K and/or MAG REPLACEMENT MC SCH (07:54)
[2017-07-22] MEDS: lisinopril 5mg tablet PO SCH (08:01)
[2017-07-22] MEDS: carVEDilol 3.125mg tablet PO SCH ×2 (08:02→20:39)
[2017-07-22] MEDS: pantoprazole 40mg Tablet.DR PO SCH (08:02)
[2017-07-22] MEDS: furosemide 40mg/4ml inj IV SCH ×2 (08:03→19:01)
[2017-07-22] MEDS: emollient combination-Eucerin 250 ML LOTION TP SCH ×2 (08:03→20:41)
[2017-07-22] MEDS: aspirin 81mg tablet.DR PO SCH (08:03)
[2017-07-22] MEDS: insulin Lispro (HumaLOG) vial - multi-dose SQ SCH ×3 (08:45→18:59)
[2017-07-22 10:00] VITALS: BP 97/71
[2017-07-22] MEDS: HYDROcodone/acetaminophen 10/325mg tab PO PRN (15:11)
[2017-07-22 18:48] VITALS: BP 112/77
[2017-07-22 19:06] VITALS: BP 114/80
[2017-07-22 20:42] VITALS: BP 112/78
[2017-07-22] MEDS: insulin glargine (Lantus) pen - multi-dose SQ SCH (20:46)
[2017-07-22] MEDS ORDERED: warfarin 4mg tablet PO ONE (21:00)
[2017-07-22 22:02] VITALS: BP 105/74
[2017-07-23] MEDS: HYDROcodone/acetaminophen 10/325mg tab PO PRN ×3 (00:41→19:24)
[2017-07-23] MEDS: ipratropium/albuterol 3ml nebule NEB SCH ×4 (04:00→20:27)
[2017-07-23 06:00] VITALS: BP 95/60
[2017-07-23 06:58] LABS: BASOPHILS % (AUTO) 0.2 % (0-1); EOSINOPHILS # (AUTO) 0.3 X10'3 (0-0.9); EOSINOPHILS % (AUTO) 4.7 % (0-6); HEMATOCRIT 48.4 % (42.0-52.0); HEMOGLOBIN 15.5 g/dl (14.0-17.9); LYMPHOCYTES # (AUTO) 1.3 X10'3 (1.1-4.8); LYMPHOCYTES % (AUTO) 18.2 % (21-51); MEAN CORPUSCULAR HEMOGLOBIN 27.1 PG (27.0-31.0); MEAN CORPUSCULAR HGB CONC 32.1 % (33.0-36.5); MEAN CORPUSCULAR VOLUME 84.4 FL (78-98); MEAN PLATELET VOLUME 7.9 FL (7.4-10.4); MONOCYTES # (AUTO) 0.1 X10'3 (0-0.9); NEUTROPHILS # (AUTO) 5.4 X10'3 (1.8-7.7); NEUTROPHILS % (AUTO) 74.9 % (42-75); PLATELET COUNT 156 X10'3 (140-440); RED BLOOD COUNT 5.73 X10'6 (4.70-6.10); RED CELL DISTRIBUTION WIDTH 17.9 % (11.5-14.5); WHITE BLOOD COUNT 7.2 X10'3 (4.5-11.0)
[2017-07-23 07:07] LABS: INR 2.8 INR; PROTHROMBIN TIME 27.9 SECONDS (9.0-12.0)
[2017-07-23 07:13] LABS: ALBUMIN 2.1 G/DL (3.4-5.0); ANION GAP 5 (8-16); BLOOD UREA NITROGEN 42 MG/DL (7-18); BUN/CREATININE RATIO 29.6 (5.4-32.0); CALCIUM 7.9 MG/DL (8.5-10.1); CHLORIDE 102 MMOL/L (99-107); CREATININE 1.42 MG/DL (0.60-1.10); GLUCOSE 102 MG/DL (70-104); MAGNESIUM 1.7 MG/DL (1.5-2.4); PHOSPHORUS 2.5 MG/DL (2.3-4.5); POTASSIUM 4.2 MMOL/L (3.5-5.1); SODIUM 139 MMOL/L (135-145); TOTAL CARBON DIOXIDE 32.1 MMOL/L (24-32); eGFR 51 ML/MIN
[2017-07-23] MEDS: lisinopril 5mg tablet PO SCH (08:00)
[2017-07-23] MEDS: carVEDilol 3.125mg tablet PO SCH ×2 (08:00→19:15)
[2017-07-23] MEDS: K and/or MAG REPLACEMENT MC SCH (08:00)
[2017-07-23] MEDS: furosemide 40mg/4ml inj IV SCH ×2 (08:00→19:15)
[2017-07-23] MEDS: pantoprazole 40mg Tablet.DR PO SCH (08:06)
[2017-07-23] MEDS: emollient combination-Eucerin 250 ML LOTION TP SCH ×2 (08:07→19:24)
[2017-07-23 11:00] VITALS: BP 125/78
[2017-07-23] MEDS ORDERED: lisinopril 20mg tablet PO SCH (13:29)
[2017-07-23] MEDS: mag hydrox/Alum hydrox/simeth 30ml oral suspension PO PRN (16:10)
[2017-07-23 18:00] VITALS: BP 125/78
[2017-07-23] MEDS: insulin Lispro (HumaLOG) vial - multi-dose SQ SCH (19:07)
[2017-07-23] MEDS: insulin glargine (Lantus) pen - multi-dose SQ SCH (19:14)
[2017-07-23] MEDS ORDERED: warfarin 4mg tablet PO ONE (21:00)
[2017-07-23 22:00] VITALS: BP 96/54
[2017-07-24 05:00] VITALS: BP 108/60
[2017-07-24] MEDS: emollient combination-Eucerin 250 ML LOTION TP SCH (07:27)
[2017-07-24] MEDS: K and/or MAG REPLACEMENT MC SCH (07:30)
[2017-07-24] MEDS: carVEDilol 3.125mg tablet PO SCH (07:32)
[2017-07-24] MEDS: pantoprazole 40mg Tablet.DR PO SCH (07:32)
[2017-07-24] MEDS: furosemide 40mg/4ml inj IV SCH (07:32)
[2017-07-24] MEDS: insulin Lispro (HumaLOG) vial - multi-dose SQ SCH ×2 (08:58→13:28)
[2017-07-24] MEDS: ipratropium/albuterol 3ml nebule NEB SCH (09:09)
[2017-07-24 10:00] VITALS: BP 102/55
[2017-07-24] MEDS ORDERED: warfarin 4mg tablet PO ONE (21:00)
== END 2017-07-24 15:30 | disposition home or self-care (01) | DRG 140 ==
LOC: ER 13:16 → ED HOLD 16:40 → ORTHO 4S 18:43
PROVIDERS: ADMIT Internal Medicine Nephrology; ATTEND Internal Medicine
PROC: 02HV33Z Insertion of Infusion Device into Superior Vena Cava, Percutaneous Approach (ICD-10-PCS; principal; 2017-07-19)
DX: J44.1 Chronic obstructive pulmonary disease with (acute) exacerbation (principal); J96.01 Acute respiratory failure with hypoxia; I50.23 Acute on chronic systolic (congestive) heart failure; E44.0 Moderate protein-calorie malnutrition; I42.0 Dilated cardiomyopathy; E11.22 Type 2 diabetes mellitus with diabetic chronic kidney disease; E11.65 Type 2 diabetes mellitus with hyperglycemia; Z66 Do not resuscitate; I51.3 Intracardiac thrombosis, not elsewhere classified; Z60.2 Problems related to living alone; N18.9 Chronic kidney disease, unspecified; F12.90 Cannabis use, unspecified, uncomplicated; F15.10 Other stimulant abuse, uncomplicated; B19.20 Unspecified viral hepatitis C without hepatic coma; K74.60 Unspecified cirrhosis of liver; N18.3 Chronic kidney disease, stage 3 (moderate); Z88.0 Allergy status to penicillin; Z88.6 Allergy status to analgesic agent; Z68.27 Body mass index [BMI] 27.0-27.9, adult; Z79.899 Other long term (current) drug therapy; Z79.01 Long term (current) use of anticoagulants; Z59.0 Homelessness; Z86.73 Personal history of transient ischemic attack (TIA), and cerebral infarction without residual deficits; Z56.0 Unemployment, unspecified
CPT/HCPCS: 36415; 36556; 71045; 80048; 80053; 82948; 83036; 83735; 83880; 84100; 84484; 85025; 85610; 85730; 87070; 93005; 94640; 94760; 97162; 97530; 99291; A6449; C1751; J1815; J1940; J2405; J2930

== ENCOUNTER 2017-08-11 09:25 | Emergency (ER) | payer MEDICAID ==
[~2017-08-11] VITALS: Ht 172.7 cm; Wt 84.1 kg
[~2017-08-11 09:25] MED LIST changes: -COU5T PO
[2017-08-11 09:59] LABS: BASOPHILS % (AUTO) 0.4 % (0-1); EOSINOPHILS # (AUTO) 0.2 X10'3 (0-0.9); HEMATOCRIT 46.8 % (42.0-52.0); HEMOGLOBIN 15.2 g/dl (14.0-17.9); LYMPHOCYTES # (AUTO) 1.9 X10'3 (1.1-4.8); LYMPHOCYTES % (AUTO) 23.5 % (21-51); MEAN CORPUSCULAR HEMOGLOBIN 26.9 PG (27.0-31.0); MEAN CORPUSCULAR HGB CONC 32.6 % (33.0-36.5); MEAN CORPUSCULAR VOLUME 82.7 FL (78-98); MEAN PLATELET VOLUME 7.6 FL (7.4-10.4); MONOCYTES # (AUTO) 0.6 X10'3 (0-0.9); MONOCYTES % (AUTO) 7.3 % (2-12); NEUTROPHILS # (AUTO) 5.3 X10'3 (1.8-7.7); NEUTROPHILS % (AUTO) 65.8 % (42-75); PLATELET COUNT 276 X10'3 (140-440); RED BLOOD COUNT 5.66 X10'6 (4.70-6.10); RED CELL DISTRIBUTION WIDTH 20.7 % (11.5-14.5); WHITE BLOOD COUNT 8.1 X10'3 (4.5-11.0)
[2017-08-11 10:13] LABS: INR 1.4 INR; PARTIAL THROMBOPLASTIN TIME 25 SECONDS (22-32); PROTHROMBIN TIME 14.7 SECONDS (9.0-12.0)
[2017-08-11 11:26] LABS: ALANINE AMINOTRANSFERASE 40 U/L (12-78); ALBUMIN 2.2 G/DL (3.4-5.0); ALBUMIN/GLOBULIN RATIO 0.4 (1.1-1.5); ALKALINE PHOSPHATASE 160 IU/L (46-116); ANION GAP 9 (8-16); ASPARTATE AMINO TRANSFERASE 38 U/L (10-37); BLOOD UREA NITROGEN 32 MG/DL (7-18); BUN/CREATININE RATIO 23.4 (5.4-32.0); CALCIUM 8.4 MG/DL (8.5-10.1); CHLORIDE 108 MMOL/L (99-107); CREATININE 1.37 MG/DL (0.60-1.10); GLUCOSE 156 MG/DL (70-104); POTASSIUM 4.1 MMOL/L (3.5-5.1); SODIUM 142 MMOL/L (135-145); TOTAL CARBON DIOXIDE 25.1 MMOL/L (24-32); TOTAL PROTEIN 8.2 G/DL (6.4-8.2); eGFR 54 ML/MIN
[2017-08-11] MEDS ORDERED: PERM1LIQ TOP (13:13)
[2017-08-11 13:46] VITALS: BP 139/82
== END 2017-08-11 13:48 | disposition home or self-care (01) ==
LOC: ER 09:26
DX: B85.0 Pediculosis due to Pediculus humanus capitis (principal); R06.02 Shortness of breath; I50.9 Heart failure, unspecified; J44.9 Chronic obstructive pulmonary disease, unspecified; E11.9 Type 2 diabetes mellitus without complications; F12.10 Cannabis abuse, uncomplicated; F15.10 Other stimulant abuse, uncomplicated; Z86.73 Personal history of transient ischemic attack (TIA), and cerebral infarction without residual deficits; Z59.0 Homelessness; Z56.0 Unemployment, unspecified; Z88.0 Allergy status to penicillin; Z88.5 Allergy status to narcotic agent; Z79.4 Long term (current) use of insulin; Z79.899 Other long term (current) drug therapy
CPT/HCPCS: 36415; 71045; 80053; 84484; 85025; 85610; 85730; 93005; 93308; 99285

== ENCOUNTER 2017-09-01 20:57 | Inpatient (IN) | payer MEDICAID ==
[~2017-09-01] VITALS: Ht 170.2 cm; Wt 84.0 kg
[~2017-09-01 20:57] MED LIST changes: +PERM1LIQ TOP
[2017-09-02 00:13] LABS: INR 1.8 INR; PARTIAL THROMBOPLASTIN TIME 28 SECONDS (22-32); PROTHROMBIN TIME 18.1 SECONDS (9.0-12.0)
[2017-09-02 00:18] LABS: BASOPHILS % (AUTO) 0.1 % (0-1); EOSINOPHILS # (AUTO) 0.1 X10'3 (0-0.9); EOSINOPHILS % (AUTO) 1.4 % (0-6); HEMATOCRIT 48.7 % (42.0-52.0); HEMOGLOBIN 15.6 g/dl (14.0-17.9); LYMPHOCYTES # (AUTO) 1.1 X10'3 (1.1-4.8); LYMPHOCYTES % (AUTO) 12.2 % (21-51); MEAN CORPUSCULAR HEMOGLOBIN 26.9 PG (27.0-31.0); MEAN CORPUSCULAR HGB CONC 32.1 % (33.0-36.5); MEAN CORPUSCULAR VOLUME 83.7 FL (78-98); MEAN PLATELET VOLUME 8.3 FL (7.4-10.4); MONOCYTES # (AUTO) 0.4 X10'3 (0-0.9); MONOCYTES % (AUTO) 4.9 % (2-12); NEUTROPHILS % (AUTO) 81.4 % (42-75); PLATELET COUNT 130 X10'3 (140-440); RED BLOOD COUNT 5.82 X10'6 (4.70-6.10); RED CELL DISTRIBUTION WIDTH 23.7 % (11.5-14.5); WHITE BLOOD COUNT 8.7 X10'3 (4.5-11.0)
[2017-09-02 00:26] LABS: ALANINE AMINOTRANSFERASE 36 U/L (12-78); ALBUMIN 2.3 G/DL (3.4-5.0); ALBUMIN/GLOBULIN RATIO 0.4 (1.1-1.5); ALKALINE PHOSPHATASE 126 IU/L (46-116); ANION GAP 12 (8-16); ASPARTATE AMINO TRANSFERASE 59 U/L (10-37); BLOOD UREA NITROGEN 51 MG/DL (7-18); BUN/CREATININE RATIO 27.1 (5.4-32.0); CALCIUM 8.4 MG/DL (8.5-10.1); CHLORIDE 102 MMOL/L (99-107); CREATININE 1.88 MG/DL (0.60-1.10); GLUCOSE 156 MG/DL (70-104); MAGNESIUM 1.9 MG/DL (1.5-2.4); POTASSIUM 4.4 MMOL/L (3.5-5.1); SODIUM 137 MMOL/L (135-145); TOTAL CARBON DIOXIDE 23.4 MMOL/L (24-32); TOTAL PROTEIN 8.1 G/DL (6.4-8.2); eGFR 37 ML/MIN
[2017-09-02] MEDS ORDERED: vancomycin inj 1,000 MG in normal saline 250ml IV soln 250 ML IV STA (00:29)
[2017-09-02] MEDS ORDERED: meropenem inj 500 MG in normal saline 100ml IV soln 100 ML IV SCH (00:48)
[2017-09-02] MEDS ORDERED: vancomycin/NS 1 GM ADD-VANTAGE 250 ML IV ONE (01:00)
[2017-09-02] MEDS ORDERED: MEROPENEM 500 MG IV ONE (01:19)
[2017-09-02] MEDS ORDERED: aspirin 81mg tab.chew PO ONE (03:00)
[2017-09-02] MEDS ORDERED: nitroGLYCERIN 0.2mg/hour patch TD ONE (03:00)
[2017-09-02] MEDS ORDERED: magnesium 4gm in 100ml NS 100 ML IV PRN (03:30)
[2017-09-02] MEDS ORDERED: ipratropium/albuterol 3ml nebule NEB PRN (03:30)
[2017-09-02] MEDS ORDERED: glucagon, human recombinant 1mg kit SUBCUT PRN (03:30)
[2017-09-02] MEDS ORDERED: bisacodyl 10mg suppository rectal RC PRN (03:30)
[2017-09-02] MEDS ORDERED: magnesium 2GM in 50ml NS 50 ML IV PRN (03:30)
[2017-09-02] MEDS ORDERED: MESSAGE TO PHARMACY PO ONE (03:30)
[2017-09-02] MEDS ORDERED: mag hydrox/Alum hydrox/simeth 30ml oral suspension PO PRN (03:30)
[2017-09-02] MEDS ORDERED: potassium Cl 20 mEq SR tablet PO PRN ×2 (03:30)
[2017-09-02] MEDS ORDERED: ondansetron/PF 4mg/2ml inj IV PRN (03:30)
[2017-09-02] MEDS ORDERED: dextrose ORAL solution 15 GM/59 ML bottle PO PRN ×2 (03:30)
[2017-09-02] MEDS ORDERED: acetaminophen 325mg tablet PO PRN (03:30)
[2017-09-02] MEDS ORDERED: dextrose 50%-water 50ml dispensing syringe IV PRN ×2 (03:30)
[2017-09-02] MEDS ORDERED: potassium Cl 40MEQ/NS 500ml 500 ML IV PRN ×2 (03:30)
[2017-09-02 05:00] VITALS: BP 120/78
[2017-09-02] MEDS: levoFLOXACIN 750MG TABLET PO SCH (05:08)
[2017-09-02 07:00] VITALS: BP 113/72
[2017-09-02] MEDS ORDERED: furosemide 10 MG/1 ML 10ml inj IV SCH (08:00)
[2017-09-02] MEDS: K and/or MAG REPLACEMENT MC SCH (08:00)
[2017-09-02] MEDS: lactobacillus rhamnosus 10,000 MMU CELLS/CAPSULE PO SCH ×2 (08:02→20:42)
[2017-09-02] MEDS: carVEDilol 3.125mg tablet PO SCH ×2 (08:02→20:42)
[2017-09-02] MEDS: lisinopril 5mg tablet PO SCH (08:03)
[2017-09-02] MEDS ORDERED: ALBU2.5V10 (09:55)
[2017-09-02] MEDS ORDERED: ALBU18HF2 (09:55)
[2017-09-02 10:34] LABS: CLARITY,URINE CLOUDY (Clear); COLOR,URINE YELLOW (Yellow); GLUCOSE, URINE NEGATIVE (Neg); KETONES,URINE NEGATIVE (Neg); LEUKOCYTE ESTERASE ,URINE LARGE (Neg); NITRITES, URINE POSITIVE (Neg); OCCULT BLOOD,URINE MODERATE (Neg); PH,URINE 5.5 (4.8-8.0); PROTEIN,URINE NEGATIVE (Neg); UROBILINOGEN,URINE 0.2 E.U/dL (0.2-1.0)
[2017-09-02 10:35] LABS: UA COLLECTION TYPE NON-SPECIFIED
[2017-09-02 10:49] LABS: BACTERIA,URINE 4+ /HPF (Neg); SQUAMOUS EPITHELIAL CELL,UR FEW /LPF (FEW); WBC CLUMPS,URINE FEW /HPF (NEGATIVE); WBC,URINE TNTC /HPF (0-4)
[2017-09-02 11:00] VITALS: BP 102/65
[2017-09-02] MEDS ORDERED: normal saline 1000ml 1,000 ML IV ONE (11:30)
[2017-09-02] MEDS: normal saline 1000ml 1,000 ML IV SCH (11:37)
[2017-09-02] MEDS ORDERED: heparin 10,000 units/1 ML INJ IV ONE (11:40)
[2017-09-02 11:51] LABS: URINE AMPHETAMINE SCREEN POSITIVE (Neg); URINE BARBITUATE SCREEN NEGATIVE (Neg); URINE BENZODIAZEPINES SCREEN NEGATIVE (Neg); URINE CANNABINOID SCREEN NEGATIVE (Neg); URINE COCAINE SCREEN NEGATIVE (Neg); URINE METHADONE SCREEN NEGATIVE (Neg); URINE OPIATE SCREEN NEGATIVE (Neg); URINE PHENCYCLIDINE SCREEN NEGATIVE (Neg)
[2017-09-02] MEDS ORDERED: POTA20TA19 (11:53)
[2017-09-02] MEDS ORDERED: COU5T PO (11:53)
[2017-09-02 12:04] LABS: BASOPHILS % (AUTO) 0 % (0-1); EOSINOPHILS # (AUTO) 0.2 X10'3 (0-0.9); EOSINOPHILS % (AUTO) 3.2 % (0-6); HEMATOCRIT 40.9 % (42.0-52.0); HEMOGLOBIN 13.4 g/dl (14.0-17.9); LYMPHOCYTES # (AUTO) 0.5 X10'3 (1.1-4.8); LYMPHOCYTES % (AUTO) 7.1 % (21-51); MEAN CORPUSCULAR HEMOGLOBIN 27.1 PG (27.0-31.0); MEAN CORPUSCULAR HGB CONC 32.7 % (33.0-36.5); MEAN CORPUSCULAR VOLUME 82.7 FL (78-98); MEAN PLATELET VOLUME 7.6 FL (7.4-10.4); MONOCYTES # (AUTO) 0.4 X10'3 (0-0.9); MONOCYTES % (AUTO) 5.6 % (2-12); NEUTROPHILS # (AUTO) 5.8 X10'3 (1.8-7.7); NEUTROPHILS % (AUTO) 84.1 % (42-75); PLATELET COUNT 125 X10'3 (140-440); RED BLOOD COUNT 4.94 X10'6 (4.70-6.10); RED CELL DISTRIBUTION WIDTH 23.4 % (11.5-14.5); WHITE BLOOD COUNT 6.9 X10'3 (4.5-11.0)
[2017-09-02 12:14] LABS: INR 1.8 INR; PARTIAL THROMBOPLASTIN TIME 28 SECONDS (22-32); PROTHROMBIN TIME 18.5 SECONDS (9.0-12.0)
[2017-09-02 15:00] VITALS: BP 112/80
[2017-09-02 19:00] VITALS: BP 119/90
[2017-09-02] MEDS: furosemide 40mg/4ml inj IV SCH (20:43)
[2017-09-02] MEDS: HYDROcodone/acetaminophen 10/325mg tab PO PRN (20:43)
[2017-09-02] MEDS ORDERED: warfarin 5mg tablet PO ONE (21:00)
[2017-09-02] MEDS: insulin glargine (Lantus) pen - multi-dose SQ SCH (21:17)
[2017-09-02 23:00] VITALS: BP 110/77
[2017-09-03] MEDS: vancomycin inj 1,250 MG in normal saline 250ml IV soln 250 ML IV SCH (01:16)
[2017-09-03 03:00] VITALS: BP 118/84
[2017-09-03 04:02] LABS: ALBUMIN 1.8 G/DL (3.4-5.0); ANION GAP 7 (8-16); BILIRUBIN,TOTAL 1.5 MG/DL (0.1-1.0); BLOOD UREA NITROGEN 39 MG/DL (7-18); BUN/CREATININE RATIO 26.9 (5.4-32.0); CALCIUM 7.8 MG/DL (8.5-10.1); CHLORIDE 106 MMOL/L (99-107); CREATININE 1.45 MG/DL (0.60-1.10); GLUCOSE 121 MG/DL (70-104); MAGNESIUM 1.6 MG/DL (1.5-2.4); POTASSIUM 3.9 MMOL/L (3.5-5.1); SODIUM 141 MMOL/L (135-145); TOTAL CARBON DIOXIDE 27.8 MMOL/L (24-32); TOTAL PROTEIN 6.7 G/DL (6.4-8.2); eGFR 50 ML/MIN
[2017-09-03 04:03] LABS: ALANINE AMINOTRANSFERASE 27 U/L (12-78); ALBUMIN/GLOBULIN RATIO 0.4 (1.1-1.5); ALKALINE PHOSPHATASE 97 IU/L (46-116); ASPARTATE AMINO TRANSFERASE 39 U/L (10-37)
[2017-09-03 04:22] LABS: BASOPHILS % (AUTO) 0.6 % (0-1); EOSINOPHILS # (AUTO) 0.2 X10'3 (0-0.9); EOSINOPHILS % (AUTO) 3.7 % (0-6); HEMATOCRIT 44.5 % (42.0-52.0); HEMOGLOBIN 13.9 g/dl (14.0-17.9); LYMPHOCYTES # (AUTO) 1.2 X10'3 (1.1-4.8); LYMPHOCYTES % (AUTO) 18.6 % (21-51); MEAN CORPUSCULAR HEMOGLOBIN 26.1 PG (27.0-31.0); MEAN CORPUSCULAR HGB CONC 31.3 % (33.0-36.5); MEAN CORPUSCULAR VOLUME 83.4 FL (78-98); MEAN PLATELET VOLUME 8.5 FL (7.4-10.4); MONOCYTES # (AUTO) 0.5 X10'3 (0-0.9); MONOCYTES % (AUTO) 7.9 % (2-12); NEUTROPHILS # (AUTO) 4.4 X10'3 (1.8-7.7); NEUTROPHILS % (AUTO) 69.2 % (42-75); PLATELET COUNT 123 X10'3 (140-440); RED BLOOD COUNT 5.33 X10'6 (4.70-6.10); RED CELL DISTRIBUTION WIDTH 22.5 % (11.5-14.5); WHITE BLOOD COUNT 6.3 X10'3 (4.5-11.0)
[2017-09-03] MEDS: heparin 10,000 units/1 ML INJ IV PRN ×2 (05:28→23:31)
[2017-09-03 06:00] VITALS: BP 104/77
[2017-09-03] MEDS: normal saline 1000ml 1,000 ML IV SCH (07:30)
[2017-09-03] MEDS: K and/or MAG REPLACEMENT MC SCH (08:00)
[2017-09-03] MEDS: lisinopril 5mg tablet PO SCH (08:08)
[2017-09-03] MEDS: furosemide 40mg/4ml inj IV SCH ×2 (08:08→20:02)
[2017-09-03] MEDS: lactobacillus rhamnosus 10,000 MMU CELLS/CAPSULE PO SCH ×2 (08:08→20:02)
[2017-09-03] MEDS: carVEDilol 3.125mg tablet PO SCH ×2 (08:08→20:02)
[2017-09-03 11:00] VITALS: BP 109/71
[2017-09-03 14:40] LABS: INR 1.7 INR; PROTHROMBIN TIME 16.9 SECONDS (9.0-12.0)
[2017-09-03 15:00] VITALS: BP 103/73
[2017-09-03] MEDS: HYDROcodone/acetaminophen 10/325mg tab PO PRN (15:21)
[2017-09-03 19:00] VITALS: BP 103/74
[2017-09-03] MEDS: insulin glargine (Lantus) pen - multi-dose SQ SCH (21:00)
[2017-09-03 23:00] VITALS: BP 115/78
[2017-09-04] MEDS: vancomycin inj 1,250 MG in normal saline 250ml IV soln 250 ML IV SCH (01:00)
[2017-09-04] MEDS: normal saline 1000ml 1,000 ML IV SCH ×2 (01:04→23:30)
[2017-09-04 03:00] VITALS: BP 122/82
[2017-09-04 05:41] LABS: BASOPHILS % (AUTO) 0.6 % (0-1); EOSINOPHILS # (AUTO) 0.2 X10'3 (0-0.9); EOSINOPHILS % (AUTO) 2.9 % (0-6); HEMATOCRIT 46.1 % (42.0-52.0); HEMOGLOBIN 14.9 g/dl (14.0-17.9); LYMPHOCYTES # (AUTO) 1.3 X10'3 (1.1-4.8); LYMPHOCYTES % (AUTO) 18.6 % (21-51); MEAN CORPUSCULAR HEMOGLOBIN 26.8 PG (27.0-31.0); MEAN CORPUSCULAR HGB CONC 32.3 % (33.0-36.5); MEAN PLATELET VOLUME 8.3 FL (7.4-10.4); MONOCYTES # (AUTO) 0.5 X10'3 (0-0.9); MONOCYTES % (AUTO) 6.7 % (2-12); NEUTROPHILS # (AUTO) 5.1 X10'3 (1.8-7.7); NEUTROPHILS % (AUTO) 71.2 % (42-75); PLATELET COUNT 137 X10'3 (140-440); RED BLOOD COUNT 5.56 X10'6 (4.70-6.10); RED CELL DISTRIBUTION WIDTH 23.5 % (11.5-14.5); WHITE BLOOD COUNT 7.2 X10'3 (4.5-11.0)
[2017-09-04 05:51] LABS: INR 1.6 INR; PROTHROMBIN TIME 16.4 SECONDS (9.0-12.0)
[2017-09-04 06:26] LABS: ALANINE AMINOTRANSFERASE 32 U/L (12-78); ALBUMIN/GLOBULIN RATIO 0.4 (1.1-1.5); ALKALINE PHOSPHATASE 104 IU/L (46-116); ANION GAP 12 (8-16); ASPARTATE AMINO TRANSFERASE 40 U/L (10-37); BILIRUBIN,TOTAL 1.3 MG/DL (0.1-1.0); BLOOD UREA NITROGEN 35 MG/DL (7-18); BUN/CREATININE RATIO 28.7 (5.4-32.0); CHLORIDE 105 MMOL/L (99-107); CREATININE 1.22 MG/DL (0.60-1.10); GLUCOSE 144 MG/DL (70-104); MAGNESIUM 1.4 MG/DL (1.5-2.4); POTASSIUM 4.3 MMOL/L (3.5-5.1); SODIUM 139 MMOL/L (135-145); TOTAL CARBON DIOXIDE 21.6 MMOL/L (24-32); TOTAL PROTEIN 7.5 G/DL (6.4-8.2); TROPONIN I 0.11 NG/ML (0.0-0.05); eGFR 61 ML/MIN
[2017-09-04 07:09] VITALS: BP 138/89
[2017-09-04] MEDS: insulin Lispro (HumaLOG) vial - multi-dose SQ SCH (07:38)
[2017-09-04] MEDS: lisinopril 5mg tablet PO SCH (07:44)
[2017-09-04] MEDS: levoFLOXACIN 750MG TABLET PO SCH (07:44)
[2017-09-04] MEDS: lactobacillus rhamnosus 10,000 MMU CELLS/CAPSULE PO SCH ×2 (07:44→20:36)
[2017-09-04] MEDS: carVEDilol 3.125mg tablet PO SCH ×2 (07:44→20:35)
[2017-09-04] MEDS: furosemide 40mg/4ml inj IV SCH ×2 (07:44→20:37)
[2017-09-04] MEDS: K and/or MAG REPLACEMENT MC SCH (08:00)
[2017-09-04] MEDS: magnesium Cl slow-release 64mg tablet PO PRN (09:26)
[2017-09-04 12:00] VITALS: BP 106/71
[2017-09-04] MEDS: HYDROcodone/acetaminophen 10/325mg tab PO PRN ×2 (13:30→19:44)
[2017-09-04 15:00] VITALS: BP 113/78
[2017-09-04 18:00] VITALS: BP 137/87
[2017-09-04] MEDS ORDERED: magnesium Cl slow-release 64mg tablet PO SCH (20:00)
[2017-09-04] MEDS ORDERED: warfarin 5mg tablet PO ONE (21:00)
[2017-09-04 22:00] VITALS: BP 119/75
[2017-09-04] MEDS: insulin glargine (Lantus) pen - multi-dose SQ SCH (22:08)
[2017-09-05] VITALS (7 sets, daily range): BP systolic 114–126; BP diastolic 74–90
[2017-09-05] MEDS ORDERED: VANCOMYCIN LEVEL IV ONE (00:30)
[2017-09-05 00:43] LABS: BASOPHILS # (AUTO) 0.1 X10'3 (0-0.2); EOSINOPHILS # (AUTO) 0.2 X10'3 (0-0.9); INR 1.5 INR; PARTIAL THROMBOPLASTIN TIME 40 SECONDS (22-32); PROTHROMBIN TIME 15.3 SECONDS (9.0-12.0)
[2017-09-05 00:45] LABS: ALANINE AMINOTRANSFERASE 27 U/L (12-78); ALBUMIN 1.8 G/DL (3.4-5.0); ALBUMIN/GLOBULIN RATIO 0.3 (1.1-1.5); ALKALINE PHOSPHATASE 95 IU/L (46-116); ANION GAP 9 (8-16); ASPARTATE AMINO TRANSFERASE 35 U/L (10-37); BILIRUBIN,TOTAL 1.1 MG/DL (0.1-1.0); BLOOD UREA NITROGEN 35 MG/DL (7-18); BUN/CREATININE RATIO 24.5 (5.4-32.0); CALCIUM 7.6 MG/DL (8.5-10.1); CHLORIDE 104 MMOL/L (99-107); CREATININE 1.43 MG/DL (0.60-1.10); GLUCOSE 149 MG/DL (70-104); MAGNESIUM 1.2 MG/DL (1.5-2.4); POTASSIUM 3.9 MMOL/L (3.5-5.1); SODIUM 140 MMOL/L (135-145); TOTAL CARBON DIOXIDE 26.9 MMOL/L (24-32); VANCOMYCIN,TROUGH 13.7 UG/ML (6.0-14.0); eGFR 51 ML/MIN
[2017-09-05 00:50] LABS: BASOPHILS % (AUTO) 0.9 % (0-1); EOSINOPHILS % (AUTO) 3.1 % (0-6); HEMATOCRIT 44.5 % (42.0-52.0); HEMOGLOBIN 13.8 g/dl (14.0-17.9); LYMPHOCYTES # (AUTO) 1.6 X10'3 (1.1-4.8); LYMPHOCYTES % (AUTO) 22.5 % (21-51); MEAN CORPUSCULAR HGB CONC 31.1 % (33.0-36.5); MEAN CORPUSCULAR VOLUME 83.4 FL (78-98); MONOCYTES # (AUTO) 0.5 X10'3 (0-0.9); MONOCYTES % (AUTO) 6.7 % (2-12); NEUTROPHILS # (AUTO) 4.7 X10'3 (1.8-7.7); NEUTROPHILS % (AUTO) 66.8 % (42-75); PLATELET COUNT 144 X10'3 (140-440); RED BLOOD COUNT 5.33 X10'6 (4.70-6.10); RED CELL DISTRIBUTION WIDTH 21.7 % (11.5-14.5); WHITE BLOOD COUNT 7.1 X10'3 (4.5-11.0)
[2017-09-05] MEDS: vancomycin inj 1,250 MG in normal saline 250ml IV soln 250 ML IV SCH ×2 (01:32→12:21)
[2017-09-05 02:13] LABS: TOTAL CELLS COUNTED 100
[2017-09-05 02:14] LABS: ANISOCYTOSIS FEW; ELLIPTOCYTES FEW; PLATELET ESTIMATE NORMAL; TOXIC GRANULATION 1+; TOXIC VACUOLATION FEW
[2017-09-05] MEDS: heparin 10,000 units/1 ML INJ IV PRN (05:48)
[2017-09-05] MEDS: lisinopril 5mg tablet PO SCH (07:35)
[2017-09-05] MEDS: lactobacillus rhamnosus 10,000 MMU CELLS/CAPSULE PO SCH ×2 (07:35→20:46)
[2017-09-05] MEDS: carVEDilol 3.125mg tablet PO SCH ×2 (07:35→20:46)
[2017-09-05] MEDS: furosemide 40mg/4ml inj IV SCH ×2 (07:35→20:48)
[2017-09-05] MEDS: K and/or MAG REPLACEMENT MC SCH (08:00)
[2017-09-05] MEDS: HYDROcodone/acetaminophen 10/325mg tab PO PRN ×2 (11:57→23:42)
[2017-09-05] MEDS: normal saline 1000ml 1,000 ML IV SCH (19:30)
[2017-09-05] MEDS: insulin glargine (Lantus) pen - multi-dose SQ SCH (20:52)
[2017-09-05] MEDS ORDERED: warfarin 5mg tablet PO ONE (21:00)
[2017-09-05] MEDS ORDERED: warfarin 7.5mg tablet PO ONE (21:00)
[2017-09-06] MEDS: vancomycin inj 1,250 MG in normal saline 250ml IV soln 250 ML IV SCH ×2 (01:30→13:01)
[2017-09-06 01:36] LABS: BASOPHILS # (AUTO) 0.1 X10'3 (0-0.2); BASOPHILS % (AUTO) 0.9 % (0-1); EOSINOPHILS # (AUTO) 0.2 X10'3 (0-0.9); EOSINOPHILS % (AUTO) 2.6 % (0-6); HEMATOCRIT 43.5 % (42.0-52.0); HEMOGLOBIN 13.7 g/dl (14.0-17.9); LYMPHOCYTES # (AUTO) 1.6 X10'3 (1.1-4.8); LYMPHOCYTES % (AUTO) 21.9 % (21-51); MEAN CORPUSCULAR HEMOGLOBIN 26.1 PG (27.0-31.0); MEAN CORPUSCULAR HGB CONC 31.6 % (33.0-36.5); MEAN CORPUSCULAR VOLUME 82.7 FL (78-98); MEAN PLATELET VOLUME 8.3 FL (7.4-10.4); MONOCYTES # (AUTO) 0.4 X10'3 (0-0.9); NEUTROPHILS # (AUTO) 4.9 X10'3 (1.8-7.7); NEUTROPHILS % (AUTO) 68.6 % (42-75); PLATELET COUNT 151 X10'3 (140-440); RED BLOOD COUNT 5.26 X10'6 (4.70-6.10); RED CELL DISTRIBUTION WIDTH 21.9 % (11.5-14.5); WHITE BLOOD COUNT 7.2 X10'3 (4.5-11.0)
[2017-09-06 01:47] LABS: INR 1.5 INR; PROTHROMBIN TIME 15.5 SECONDS (9.0-12.0)
[2017-09-06 01:53] LABS: ALANINE AMINOTRANSFERASE 25 U/L (12-78); ALBUMIN 1.9 G/DL (3.4-5.0); ALBUMIN/GLOBULIN RATIO 0.4 (1.1-1.5); ALKALINE PHOSPHATASE 86 IU/L (46-116); ANION GAP 9 (8-16); ASPARTATE AMINO TRANSFERASE 31 U/L (10-37); BLOOD UREA NITROGEN 31 MG/DL (7-18); BUN/CREATININE RATIO 25.2 (5.4-32.0); CALCIUM 7.9 MG/DL (8.5-10.1); CHLORIDE 104 MMOL/L (99-107); CREATININE 1.23 MG/DL (0.60-1.10); GLUCOSE 150 MG/DL (70-104); MAGNESIUM 1.4 MG/DL (1.5-2.4); POTASSIUM 3.6 MMOL/L (3.5-5.1); SODIUM 139 MMOL/L (135-145); TOTAL PROTEIN 7.1 G/DL (6.4-8.2); eGFR 61 ML/MIN
[2017-09-06 01:54] LABS: ANISOCYTOSIS 3+; PLATELET ESTIMATE NORMAL; TARGET CELLS FEW
[2017-09-06 01:57] LABS: ELLIPTOCYTES FEW
[2017-09-06 02:00] VITALS: BP 115/58
[2017-09-06] MEDS: heparin 10,000 units/1 ML INJ IV PRN (02:25)
[2017-09-06 07:00] VITALS: BP 127/92
[2017-09-06] MEDS: K and/or MAG REPLACEMENT MC SCH (08:00)
[2017-09-06] MEDS: furosemide 40mg/4ml inj IV SCH ×2 (08:17→20:54)
[2017-09-06] MEDS: lisinopril 5mg tablet PO SCH (08:17)
[2017-09-06] MEDS: levoFLOXACIN 750MG TABLET PO SCH (08:17)
[2017-09-06] MEDS: carVEDilol 3.125mg tablet PO SCH ×2 (08:17→20:51)
[2017-09-06] MEDS: lactobacillus rhamnosus 10,000 MMU CELLS/CAPSULE PO SCH ×2 (08:17→20:51)
[2017-09-06] MEDS: insulin Lispro (HumaLOG) vial - multi-dose SQ SCH (08:32)
[2017-09-06] MEDS: magnesium Cl slow-release 64mg tablet PO PRN (09:42)
[2017-09-06 11:00] VITALS: BP 111/79
[2017-09-06] MEDS ORDERED: VANCOMYCIN LEVEL IV ONE (12:30)
[2017-09-06 15:00] VITALS: BP 130/92
[2017-09-06] MEDS: normal saline 1000ml 1,000 ML IV SCH (15:30)
[2017-09-06 18:00] VITALS: BP 134/90
[2017-09-06] MEDS: HYDROcodone/acetaminophen 10/325mg tab PO PRN (20:52)
[2017-09-06] MEDS: insulin glargine (Lantus) pen - multi-dose SQ SCH (21:00)
[2017-09-06] MEDS ORDERED: warfarin 4mg tablet PO ONE (21:00)
[2017-09-06 22:00] VITALS: BP 115/81
[2017-09-07] MEDS: vancomycin/NS 1 GM ADD-VANTAGE 250 ML IV SCH ×2 (01:00→13:08)
[2017-09-07 01:03] LABS: INR 2.1 INR; PROTHROMBIN TIME 20.7 SECONDS (9.0-12.0)
[2017-09-07 01:08] LABS: ALANINE AMINOTRANSFERASE 28 U/L (12-78); ALBUMIN 1.9 G/DL (3.4-5.0); ALBUMIN/GLOBULIN RATIO 0.4 (1.1-1.5); ALKALINE PHOSPHATASE 104 IU/L (46-116); ANION GAP 6 (8-16); ASPARTATE AMINO TRANSFERASE 40 U/L (10-37); BLOOD UREA NITROGEN 28 MG/DL (7-18); BUN/CREATININE RATIO 22.8 (5.4-32.0); CALCIUM 7.7 MG/DL (8.5-10.1); CHLORIDE 102 MMOL/L (99-107); CREATININE 1.23 MG/DL (0.60-1.10); GLUCOSE 112 MG/DL (70-104); MAGNESIUM 1.3 MG/DL (1.5-2.4); POTASSIUM 3.6 MMOL/L (3.5-5.1); SODIUM 137 MMOL/L (135-145); TOTAL CARBON DIOXIDE 29.1 MMOL/L (24-32); TOTAL PROTEIN 7.3 G/DL (6.4-8.2); eGFR 61 ML/MIN
[2017-09-07 01:22] LABS: BASOPHILS # (AUTO) 0.1 X10'3 (0-0.2); BASOPHILS % (AUTO) 0.7 % (0-1); EOSINOPHILS # (AUTO) 0.2 X10'3 (0-0.9); EOSINOPHILS % (AUTO) 2.6 % (0-6); HEMATOCRIT 43.5 % (42.0-52.0); HEMOGLOBIN 13.8 g/dl (14.0-17.9); LYMPHOCYTES # (AUTO) 1.8 X10'3 (1.1-4.8); LYMPHOCYTES % (AUTO) 24.5 % (21-51); MEAN CORPUSCULAR HEMOGLOBIN 26.1 PG (27.0-31.0); MEAN CORPUSCULAR HGB CONC 31.8 % (33.0-36.5); MEAN CORPUSCULAR VOLUME 82.2 FL (78-98); MEAN PLATELET VOLUME 8.4 FL (7.4-10.4); MONOCYTES # (AUTO) 0.5 X10'3 (0-0.9); NEUTROPHILS # (AUTO) 4.6 X10'3 (1.8-7.7); NEUTROPHILS % (AUTO) 65.2 % (42-75); PLATELET COUNT 136 X10'3 (140-440); RED BLOOD COUNT 5.28 X10'6 (4.70-6.10); RED CELL DISTRIBUTION WIDTH 21.3 % (11.5-14.5); WHITE BLOOD COUNT 7.2 X10'3 (4.5-11.0)
[2017-09-07 02:00] VITALS: BP 119/87
[2017-09-07 07:00] VITALS: BP 123/82
[2017-09-07] MEDS: lactobacillus rhamnosus 10,000 MMU CELLS/CAPSULE PO SCH ×2 (07:57→19:05)
[2017-09-07] MEDS: furosemide 40mg/4ml inj IV SCH ×2 (07:57→19:05)
[2017-09-07] MEDS: carVEDilol 3.125mg tablet PO SCH ×2 (07:57→19:05)
[2017-09-07] MEDS: magnesium Cl slow-release 64mg tablet PO PRN (07:57)
[2017-09-07] MEDS: lisinopril 5mg tablet PO SCH (07:57)
[2017-09-07] MEDS: K and/or MAG REPLACEMENT MC SCH (08:00)
[2017-09-07 11:00] VITALS: BP 114/82
[2017-09-07] MEDS: normal saline 1000ml 1,000 ML IV SCH (11:30)
[2017-09-07] MEDS: insulin Lispro (HumaLOG) vial - multi-dose SQ SCH ×2 (13:11→19:12)
[2017-09-07 15:00] VITALS: BP 117/78
[2017-09-07] MEDS: HYDROcodone/acetaminophen 10/325mg tab PO PRN (15:58)
[2017-09-07 19:00] VITALS: BP 114/74
[2017-09-07] MEDS ORDERED: warfarin 3mg tablet PO ONE (21:00)
[2017-09-07] MEDS: insulin glargine (Lantus) pen - multi-dose SQ SCH (21:36)
[2017-09-07 23:00] VITALS: BP 116/82
[2017-09-08] MEDS: magnesium Cl slow-release 64mg tablet PO PRN (01:02)
[2017-09-08] MEDS: vancomycin/NS 1 GM ADD-VANTAGE 250 ML IV SCH ×3 (01:02→13:17)
[2017-09-08 02:35] LABS: ANION GAP 8 (8-16); BLOOD UREA NITROGEN 30 MG/DL (7-18); BUN/CREATININE RATIO 25.6 (5.4-32.0); CALCIUM 7.9 MG/DL (8.5-10.1); CHLORIDE 103 MMOL/L (99-107); CREATININE 1.17 MG/DL (0.60-1.10); GLUCOSE 95 MG/DL (70-104); MAGNESIUM 1.5 MG/DL (1.5-2.4); POTASSIUM 3.9 MMOL/L (3.5-5.1); SODIUM 140 MMOL/L (135-145); TOTAL CARBON DIOXIDE 29.3 MMOL/L (24-32); eGFR 64 ML/MIN
[2017-09-08 02:38] LABS: INR 2.3 INR; PROTHROMBIN TIME 23.3 SECONDS (9.0-12.0)
[2017-09-08 03:00] VITALS: BP 109/81
[2017-09-08 06:00] VITALS: BP 116/80
[2017-09-08] MEDS: K and/or MAG REPLACEMENT MC SCH (08:00)
[2017-09-08] MEDS: lactobacillus rhamnosus 10,000 MMU CELLS/CAPSULE PO SCH ×2 (08:09→21:54)
[2017-09-08] MEDS: levoFLOXACIN 750MG TABLET PO SCH (08:09)
[2017-09-08] MEDS: carVEDilol 3.125mg tablet PO SCH ×2 (08:09→21:54)
[2017-09-08] MEDS: furosemide 40mg/4ml inj IV SCH ×2 (08:10→21:54)
[2017-09-08] MEDS: lisinopril 5mg tablet PO SCH (08:10)
[2017-09-08] MEDS: normal saline 1000ml 1,000 ML IV SCH (08:13)
[2017-09-08] MEDS: HYDROcodone/acetaminophen 10/325mg tab PO PRN ×2 (08:27→22:55)
[2017-09-08] MEDS ORDERED: fluconazole 150mg tablet PO STA (09:38)
[2017-09-08 11:00] VITALS: BP 104/72
[2017-09-08] MEDS ORDERED: VANCOMYCIN LEVEL IV NR (12:30)
[2017-09-08] MEDS: nystatin 15 GM powder TP SCH ×2 (13:17→21:56)
[2017-09-08 15:53] VITALS: BP 97/63
[2017-09-08 19:00] VITALS: BP 120/86
[2017-09-08] MEDS ORDERED: warfarin 5mg tablet PO ONE (21:00)
[2017-09-08] MEDS: insulin glargine (Lantus) pen - multi-dose SQ SCH (22:14)
[2017-09-08 23:00] VITALS: BP 122/83
[2017-09-09] MEDS ORDERED: vancomycin inj 500 MG in dextrose 5%-water 100 ML IV SCH (01:00)
[2017-09-09 03:00] VITALS: BP 118/84
[2017-09-09] MEDS: normal saline 1000ml 1,000 ML IV SCH ×2 (03:47→23:30)
[2017-09-09 05:28] LABS: INR 2.1 INR; PROTHROMBIN TIME 21.3 SECONDS (9.0-12.0)
[2017-09-09 06:30] VITALS: BP 130/84
[2017-09-09] MEDS: carVEDilol 3.125mg tablet PO SCH ×2 (07:34→20:03)
[2017-09-09] MEDS: lisinopril 5mg tablet PO SCH (07:34)
[2017-09-09] MEDS: furosemide 40mg/4ml inj IV SCH ×2 (07:34→20:02)
[2017-09-09] MEDS: lactobacillus rhamnosus 10,000 MMU CELLS/CAPSULE PO SCH ×2 (07:34→20:02)
[2017-09-09] MEDS: nystatin 15 GM powder TP SCH ×3 (07:35→22:33)
[2017-09-09] MEDS: K and/or MAG REPLACEMENT MC SCH (08:00)
[2017-09-09 11:00] VITALS: BP 109/70
[2017-09-09] MEDS: vancomycin inj 500 MG in normal saline 100ml IV soln 100 ML IV SCH (13:34)
[2017-09-09 16:21] VITALS: BP 118/72
[2017-09-09] MEDS ORDERED: warfarin 7.5mg tablet PO ONE (21:00)
[2017-09-09] MEDS: insulin glargine (Lantus) pen - multi-dose SQ SCH (22:28)
[2017-09-09] MEDS: HYDROcodone/acetaminophen 10/325mg tab PO PRN (23:46)
[2017-09-10] MEDS: vancomycin inj 500 MG in normal saline 100ml IV soln 100 ML IV SCH ×2 (02:08→13:07)
[2017-09-10 05:37] LABS: INR 2.4 INR; PROTHROMBIN TIME 24.1 SECONDS (9.0-12.0)
[2017-09-10 06:30] VITALS: BP 120/81
[2017-09-10] MEDS: K and/or MAG REPLACEMENT MC SCH (08:00)
[2017-09-10] MEDS: lactobacillus rhamnosus 10,000 MMU CELLS/CAPSULE PO SCH (08:10)
[2017-09-10] MEDS: HYDROcodone/acetaminophen 10/325mg tab PO PRN (08:10)
[2017-09-10] MEDS: carVEDilol 3.125mg tablet PO SCH (08:11)
[2017-09-10] MEDS: nystatin 15 GM powder TP SCH ×2 (08:11→13:08)
[2017-09-10] MEDS: lisinopril 5mg tablet PO SCH (08:11)
[2017-09-10] MEDS: furosemide 40mg/4ml inj IV SCH (08:11)
[2017-09-10 11:00] VITALS: BP 105/73
[2017-09-10] MEDS ORDERED: levoFLOXACIN 750MG TABLET PO SCH (11:00)
[2017-09-10] MEDS ORDERED: VANCOMYCIN LEVEL IV NR (12:30)
[2017-09-10] MEDS ORDERED: LACT1CAP26 PO (15:00)
[2017-09-10] MEDS ORDERED: LEVO750T46 PO (15:00)
[2017-09-10] MEDS ORDERED: warfarin 5mg tablet PO ONE (21:00)
== END 2017-09-10 16:30 | disposition home or self-care (01) | DRG 190 ==
LOC: ER 20:58 → ED HOLD 09-02 03:27 → PCU 3S 09-02 04:45 → UNDODISIN 09-10 12:35
PROVIDERS: ADMIT Family Medicine; ATTEND Family Medicine
DX: I21.A1 Myocardial infarction type 2 (principal); I42.0 Dilated cardiomyopathy; E11.22 Type 2 diabetes mellitus with diabetic chronic kidney disease; I50.84 End stage heart failure; I13.0 Hypertensive heart and chronic kidney disease with heart failure and stage 1 through stage 4 chronic kidney disease, or unspecified chronic kidney disease; L03.115 Cellulitis of right lower limb; B35.6 Tinea cruris; I50.22 Chronic systolic (congestive) heart failure; F15.10 Other stimulant abuse, uncomplicated; N18.3 Chronic kidney disease, stage 3 (moderate); L03.116 Cellulitis of left lower limb; B19.20 Unspecified viral hepatitis C without hepatic coma; Z66 Do not resuscitate; I51.3 Intracardiac thrombosis, not elsewhere classified; J44.9 Chronic obstructive pulmonary disease, unspecified; K74.60 Unspecified cirrhosis of liver; Z51.5 Encounter for palliative care; Z59.0 Homelessness; Z86.73 Personal history of transient ischemic attack (TIA), and cerebral infarction without residual deficits; Z91.14 Patient's other noncompliance with medication regimen; Z79.899 Other long term (current) drug therapy; Z88.0 Allergy status to penicillin; Z88.5 Allergy status to narcotic agent
CPT/HCPCS: 36415; 71045; 80048; 80053; 80202; 80305; 81001; 82140; 82948; 83605; 83735; 83880; 84484; 85025; 85610; 85730; 87040; 87070; 87088; 93005; 94760; 99291; A6258; J1644; J1815; J1940; J2185; J3370; J7030; J7060

== ENCOUNTER 2017-09-16 01:41 | Emergency (ER) | payer MEDICAID ==
[~2017-09-16] VITALS: Ht 172.7 cm; Wt 81.8 kg
[~2017-09-16 01:41] MED LIST changes: +ALBU18HF2; +ALBU2.5V10; +COU5T PO; +LACT1CAP26 PO; +LEVO750T46 PO; -NOVLG SQ; -PERM1LIQ TOP; +POTA20TA19
[2017-09-16] MEDS ORDERED: furosemide 10 MG/1 ML 10ml inj IV ONE (02:00)
[2017-09-16 02:18] LABS: BASOPHILS % (AUTO) 0.4 % (0-1); EOSINOPHILS # (AUTO) 0.3 X10'3 (0-0.9); EOSINOPHILS % (AUTO) 3.7 % (0-6); HEMATOCRIT 39.6 % (42.0-52.0); HEMOGLOBIN 12.9 g/dl (14.0-17.9); LYMPHOCYTES # (AUTO) 1.6 X10'3 (1.1-4.8); LYMPHOCYTES % (AUTO) 16.7 % (21-51); MEAN CORPUSCULAR HEMOGLOBIN 26.8 PG (27.0-31.0); MEAN CORPUSCULAR HGB CONC 32.6 % (33.0-36.5); MEAN CORPUSCULAR VOLUME 82.3 FL (78-98); MEAN PLATELET VOLUME 8.4 FL (7.4-10.4); MONOCYTES # (AUTO) 0.5 X10'3 (0-0.9); MONOCYTES % (AUTO) 5.8 % (2-12); NEUTROPHILS # (AUTO) 6.9 X10'3 (1.8-7.7); NEUTROPHILS % (AUTO) 73.4 % (42-75); PLATELET COUNT 174 X10'3 (140-440); RED BLOOD COUNT 4.81 X10'6 (4.70-6.10); RED CELL DISTRIBUTION WIDTH 23.1 % (11.5-14.5); WHITE BLOOD COUNT 9.4 X10'3 (4.5-11.0)
[2017-09-16 02:30] LABS: INR 1.2 INR; PARTIAL THROMBOPLASTIN TIME 25 SECONDS (22-32)
[2017-09-16 02:40] LABS: ALANINE AMINOTRANSFERASE 60 U/L (12-78); ALBUMIN 2.2 G/DL (3.4-5.0); ALBUMIN/GLOBULIN RATIO 0.4 (1.1-1.5); ALKALINE PHOSPHATASE 145 IU/L (46-116); ANION GAP 5 (8-16); ASPARTATE AMINO TRANSFERASE 62 U/L (10-37); BILIRUBIN,TOTAL 1.9 MG/DL (0.1-1.0); BLOOD UREA NITROGEN 27 MG/DL (7-18); BUN/CREATININE RATIO 24.3 (5.4-32.0); CALCIUM 8.1 MG/DL (8.5-10.1); CHLORIDE 106 MMOL/L (99-107); CREATININE 1.11 MG/DL (0.60-1.10); GLUCOSE 199 MG/DL (70-104); POTASSIUM 4.2 MMOL/L (3.5-5.1); SODIUM 138 MMOL/L (135-145); TOTAL PROTEIN 7.5 G/DL (6.4-8.2); eGFR 68 ML/MIN
[2017-09-16] MEDS ORDERED: FURO40TA4 PO (03:42)
[2017-09-16 04:17] VITALS: BP 125/71
[2017-09-16 04:20] LABS: URINE AMPHETAMINE SCREEN NEGATIVE (Neg); URINE BARBITUATE SCREEN NEGATIVE (Neg); URINE BENZODIAZEPINES SCREEN NEGATIVE (Neg); URINE CANNABINOID SCREEN NEGATIVE (Neg); URINE COCAINE SCREEN NEGATIVE (Neg); URINE METHADONE SCREEN NEGATIVE (Neg); URINE OPIATE SCREEN NEGATIVE (Neg); URINE PHENCYCLIDINE SCREEN NEGATIVE (Neg)
== END 2017-09-16 04:18 | disposition home or self-care (01) ==
LOC: ER 01:41
DX: I50.23 Acute on chronic systolic (congestive) heart failure (principal); J44.9 Chronic obstructive pulmonary disease, unspecified; E11.9 Type 2 diabetes mellitus without complications; F12.90 Cannabis use, unspecified, uncomplicated; F15.10 Other stimulant abuse, uncomplicated; Z60.2 Problems related to living alone; Z59.0 Homelessness; Z56.0 Unemployment, unspecified; Z86.73 Personal history of transient ischemic attack (TIA), and cerebral infarction without residual deficits; Z88.0 Allergy status to penicillin; Z88.5 Allergy status to narcotic agent; Z79.4 Long term (current) use of insulin
CPT/HCPCS: 36415; 71045; 80053; 80305; 83880; 84484; 85025; 85610; 85730; 93005; 96374; 99285; J1940

== ENCOUNTER 2017-10-09 14:39 | Inpatient (IN) | payer MEDICAID ==
[~2017-10-09] VITALS: Ht 172.7 cm; Wt 73.2 kg
[~2017-10-09 14:39] MED LIST changes: +FURO40TA4 PO
[2017-10-09 15:24] LABS: BASOPHILS % (AUTO) 0.5 % (0-1); EOSINOPHILS # (AUTO) 0.1 X10'3 (0-0.9); HEMATOCRIT 46.2 % (42.0-52.0); HEMOGLOBIN 14.6 g/dl (14.0-17.9); LYMPHOCYTES # (AUTO) 1.2 X10'3 (1.1-4.8); LYMPHOCYTES % (AUTO) 17.2 % (21-51); MEAN CORPUSCULAR HEMOGLOBIN 26.7 PG (27.0-31.0); MEAN CORPUSCULAR HGB CONC 31.5 % (33.0-36.5); MEAN CORPUSCULAR VOLUME 84.6 FL (78-98); MEAN PLATELET VOLUME 8.2 FL (7.4-10.4); MONOCYTES # (AUTO) 0.4 X10'3 (0-0.9); MONOCYTES % (AUTO) 6.3 % (2-12); NEUTROPHILS # (AUTO) 5.1 X10'3 (1.8-7.7); PLATELET COUNT 167 X10'3 (140-440); RED BLOOD COUNT 5.46 X10'6 (4.70-6.10); RED CELL DISTRIBUTION WIDTH 23.4 % (11.5-14.5); WHITE BLOOD COUNT 6.9 X10'3 (4.5-11.0)
[2017-10-09 15:28] LABS: INR 1.2 INR; PROTHROMBIN TIME 12.6 SECONDS (9.0-12.0)
[2017-10-09 15:33] LABS: ANISOCYTOSIS 3+; ELLIPTOCYTES FEW; PLATELET ESTIMATE NORMAL
[2017-10-09 15:34] LABS: ALANINE AMINOTRANSFERASE 29 U/L (12-78); ALBUMIN 2.2 G/DL (3.4-5.0); ALBUMIN/GLOBULIN RATIO 0.4 (1.1-1.5); ALKALINE PHOSPHATASE 126 IU/L (46-116); ANION GAP 4 (8-16); ASPARTATE AMINO TRANSFERASE 43 U/L (10-37); BILIRUBIN,TOTAL 0.9 MG/DL (0.1-1.0); BLOOD UREA NITROGEN 28 MG/DL (7-18); BUN/CREATININE RATIO 20.7 (5.4-32.0); BURR CELLS FEW; CALCIUM 8.2 MG/DL (8.5-10.1); CHLORIDE 107 MMOL/L (99-107); CREATININE 1.35 MG/DL (0.60-1.10); GLUCOSE 150 MG/DL (70-104); POTASSIUM 4.4 MMOL/L (3.5-5.1); SCHISTOCYTES FEW; SODIUM 140 MMOL/L (135-145); TOTAL PROTEIN 7.6 G/DL (6.4-8.2); eGFR 54 ML/MIN
[2017-10-09] MEDS ORDERED: furosemide 10 MG/1 ML 10ml inj IV ONE (17:20)
[2017-10-09 18:02] LABS: PARTIAL THROMBOPLASTIN TIME 25 SECONDS (22-32)
[2017-10-09] MEDS ORDERED: temazepam 15mg capsule PO PRN (21:00)
[2017-10-09] MEDS ORDERED: magnesium hydroxide 30ml (MOM) UD suspension PO PRN (21:25)
[2017-10-09] MEDS ORDERED: glucagon, human recombinant 1mg kit SUBCUT PRN (21:25)
[2017-10-09] MEDS ORDERED: dextrose ORAL solution 15 GM/59 ML bottle PO PRN ×2 (21:25)
[2017-10-09] MEDS ORDERED: dextrose 50%-water 50ml dispensing syringe IV PRN ×2 (21:25)
[2017-10-09] MEDS ORDERED: acetaminophen 325mg tablet PO PRN (21:25)
[2017-10-09] MEDS ORDERED: mag hydrox/Alum hydrox/simeth 30ml oral suspension PO PRN (21:25)
[2017-10-09] MEDS ORDERED: insulin Lispro (HumaLOG) vial - multi-dose SQ SCH (21:25)
[2017-10-09] MEDS ORDERED: ondansetron/PF 4mg/2ml inj IV PRN (21:25)
[2017-10-09] MEDS ORDERED: ipratropium/albuterol 3ml nebule NEB PRN (21:25)
[2017-10-09] MEDS ORDERED: MESSAGE TO PHARMACY PO ONE (21:25)
[2017-10-10 00:47] LABS: URINE AMPHETAMINE SCREEN NEGATIVE (Neg); URINE BARBITUATE SCREEN NEGATIVE (Neg); URINE BENZODIAZEPINES SCREEN NEGATIVE (Neg); URINE CANNABINOID SCREEN NEGATIVE (Neg); URINE COCAINE SCREEN NEGATIVE (Neg); URINE METHADONE SCREEN NEGATIVE (Neg); URINE OPIATE SCREEN NEGATIVE (Neg); URINE PHENCYCLIDINE SCREEN NEGATIVE (Neg)
[2017-10-10] MEDS ORDERED: LIDOcaine 2% 10ml TOPICAL JELLY (Urojet) MM ONE (01:15)
[2017-10-10 06:41] LABS: BASOPHILS % (AUTO) 0.4 % (0-1); EOSINOPHILS # (AUTO) 0.2 X10'3 (0-0.9); EOSINOPHILS % (AUTO) 2.9 % (0-6); HEMATOCRIT 48.3 % (42.0-52.0); HEMOGLOBIN 15.4 g/dl (14.0-17.9); LYMPHOCYTES # (AUTO) 1.5 X10'3 (1.1-4.8); LYMPHOCYTES % (AUTO) 20.5 % (21-51); MEAN CORPUSCULAR HEMOGLOBIN 26.8 PG (27.0-31.0); MEAN CORPUSCULAR HGB CONC 31.9 % (33.0-36.5); MEAN CORPUSCULAR VOLUME 84.1 FL (78-98); MEAN PLATELET VOLUME 8.2 FL (7.4-10.4); MONOCYTES # (AUTO) 0.4 X10'3 (0-0.9); MONOCYTES % (AUTO) 5.5 % (2-12); NEUTROPHILS # (AUTO) 5.3 X10'3 (1.8-7.7); NEUTROPHILS % (AUTO) 70.7 % (42-75); PLATELET COUNT 171 X10'3 (140-440); RED BLOOD COUNT 5.75 X10'6 (4.70-6.10); RED CELL DISTRIBUTION WIDTH 23.6 % (11.5-14.5); WHITE BLOOD COUNT 7.4 X10'3 (4.5-11.0)
[2017-10-10 07:07] LABS: ALANINE AMINOTRANSFERASE 35 U/L (12-78); ALBUMIN 2.3 G/DL (3.4-5.0); ALBUMIN/GLOBULIN RATIO 0.4 (1.1-1.5); ALKALINE PHOSPHATASE 122 IU/L (46-116); ANION GAP 8 (8-16); ASPARTATE AMINO TRANSFERASE 49 U/L (10-37); BILIRUBIN,TOTAL 0.9 MG/DL (0.1-1.0); BLOOD UREA NITROGEN 30 MG/DL (7-18); BUN/CREATININE RATIO 21.9 (5.4-32.0); CALCIUM 8.4 MG/DL (8.5-10.1); CHLORIDE 108 MMOL/L (99-107); CREATININE 1.37 MG/DL (0.60-1.10); GLUCOSE 165 MG/DL (70-104); POTASSIUM 4.3 MMOL/L (3.5-5.1); SODIUM 139 MMOL/L (135-145); TOTAL CARBON DIOXIDE 23.4 MMOL/L (24-32); eGFR 54 ML/MIN
[2017-10-10 07:11] LABS: MAGNESIUM 1.8 MG/DL (1.5-2.4); PHOSPHORUS 3.9 MG/DL (2.3-4.5)
[2017-10-10] MEDS ORDERED: enoxaparin 40mg/0.4ml syringe SUBCUT SCH (08:00)
[2017-10-10] MEDS: carVEDilol 3.125mg tablet PO SCH ×2 (08:27→20:27)
[2017-10-10] MEDS: lactobacillus rhamnosus 10,000 MMU CELLS/CAPSULE PO SCH ×2 (08:27→20:27)
[2017-10-10] MEDS: furosemide 40mg/4ml inj IV SCH ×2 (08:27→20:27)
[2017-10-10] MEDS: lisinopril 5mg tablet PO SCH (08:56)
[2017-10-10] MEDS: levoFLOXACIN 750MG TABLET PO SCH (11:36)
[2017-10-10 19:00] VITALS: BP 119/96
[2017-10-10] MEDS ORDERED: warfarin 5mg tablet PO SCH (21:00)
[2017-10-10] MEDS ORDERED: warfarin 5mg tablet PO ONE (21:00)
[2017-10-10] MEDS ORDERED: Insulin Detemir pen SQ SCH (21:00)
[2017-10-10] MEDS: insulin glargine (Lantus) pen - multi-dose SQ SCH (21:00)
[2017-10-10 23:00] VITALS: BP 109/82
[2017-10-11 03:00] VITALS: BP 96/68
[2017-10-11 05:54] LABS: BASOPHILS # (AUTO) 0.1 X10'3 (0-0.2); BASOPHILS % (AUTO) 0.8 % (0-1); EOSINOPHILS # (AUTO) 0.2 X10'3 (0-0.9); EOSINOPHILS % (AUTO) 3.3 % (0-6); HEMATOCRIT 43.5 % (42.0-52.0); LYMPHOCYTES # (AUTO) 1.2 X10'3 (1.1-4.8); LYMPHOCYTES % (AUTO) 17.4 % (21-51); MEAN CORPUSCULAR HEMOGLOBIN 26.9 PG (27.0-31.0); MEAN CORPUSCULAR HGB CONC 32.2 % (33.0-36.5); MEAN CORPUSCULAR VOLUME 83.5 FL (78-98); MEAN PLATELET VOLUME 8.6 FL (7.4-10.4); MONOCYTES # (AUTO) 0.3 X10'3 (0-0.9); MONOCYTES % (AUTO) 3.7 % (2-12); NEUTROPHILS # (AUTO) 5.2 X10'3 (1.8-7.7); NEUTROPHILS % (AUTO) 74.8 % (42-75); PLATELET COUNT 178 X10'3 (140-440); RED BLOOD COUNT 5.21 X10'6 (4.70-6.10); RED CELL DISTRIBUTION WIDTH 23.4 % (11.5-14.5); WHITE BLOOD COUNT 6.9 X10'3 (4.5-11.0)
[2017-10-11 06:10] LABS: INR 1.3 INR; PROTHROMBIN TIME 13.6 SECONDS (9.0-12.0)
[2017-10-11 06:28] LABS: ALANINE AMINOTRANSFERASE 36 U/L (12-78); ALBUMIN/GLOBULIN RATIO 0.4 (1.1-1.5); ALKALINE PHOSPHATASE 117 IU/L (46-116); ANION GAP 9 (8-16); ASPARTATE AMINO TRANSFERASE 46 U/L (10-37); BILIRUBIN,TOTAL 0.9 MG/DL (0.1-1.0); BLOOD UREA NITROGEN 39 MG/DL (7-18); BUN/CREATININE RATIO 24.5 (5.4-32.0); CHLORIDE 104 MMOL/L (99-107); CREATININE 1.59 MG/DL (0.60-1.10); GLUCOSE 139 MG/DL (70-104); MAGNESIUM 1.5 MG/DL (1.5-2.4); PHOSPHORUS 3.7 MG/DL (2.3-4.5); POTASSIUM 4.2 MMOL/L (3.5-5.1); SODIUM 138 MMOL/L (135-145); TOTAL CARBON DIOXIDE 24.7 MMOL/L (24-32); TOTAL PROTEIN 7.2 G/DL (6.4-8.2); eGFR 45 ML/MIN
[2017-10-11 06:30] VITALS: BP 117/87
[2017-10-11] MEDS: furosemide 40mg/4ml inj IV SCH ×2 (08:11→20:03)
[2017-10-11] MEDS: lactobacillus rhamnosus 10,000 MMU CELLS/CAPSULE PO SCH ×2 (08:12→20:02)
[2017-10-11] MEDS: carVEDilol 3.125mg tablet PO SCH ×2 (08:12→20:02)
[2017-10-11] MEDS: lisinopril 5mg tablet PO SCH (08:12)
[2017-10-11] MEDS: HYDROcodone/acetaminophen 5mg/325mg tablet PO PRN ×2 (08:21→20:10)
[2017-10-11 11:00] VITALS: BP 103/75
[2017-10-11] MEDS: levoFLOXACIN 750MG TABLET PO SCH (11:24)
[2017-10-11 15:00] VITALS: BP 104/76
[2017-10-11 19:00] VITALS: BP 111/83
[2017-10-11] MEDS: insulin glargine (Lantus) pen - multi-dose SQ SCH (20:11)
[2017-10-11] MEDS ORDERED: warfarin 5mg tablet PO ONE (21:00)
[2017-10-11 23:00] VITALS: BP 119/83
[2017-10-12 03:00] VITALS: BP 97/69
[2017-10-12 06:49] VITALS: BP 111/77
[2017-10-12 07:25] LABS: BASOPHILS % (AUTO) 0.5 % (0-1); EOSINOPHILS # (AUTO) 0.2 X10'3 (0-0.9); EOSINOPHILS % (AUTO) 4.6 % (0-6); HEMATOCRIT 44.4 % (42.0-52.0); HEMOGLOBIN 14.1 g/dl (14.0-17.9); LYMPHOCYTES # (AUTO) 1.1 X10'3 (1.1-4.8); LYMPHOCYTES % (AUTO) 21.5 % (21-51); MEAN CORPUSCULAR HEMOGLOBIN 26.8 PG (27.0-31.0); MEAN CORPUSCULAR HGB CONC 31.9 % (33.0-36.5); MEAN PLATELET VOLUME 8.5 FL (7.4-10.4); MONOCYTES # (AUTO) 0.3 X10'3 (0-0.9); MONOCYTES % (AUTO) 6.5 % (2-12); NEUTROPHILS # (AUTO) 3.4 X10'3 (1.8-7.7); NEUTROPHILS % (AUTO) 66.9 % (42-75); PLATELET COUNT 157 X10'3 (140-440); RED BLOOD COUNT 5.28 X10'6 (4.70-6.10); RED CELL DISTRIBUTION WIDTH 23.6 % (11.5-14.5); WHITE BLOOD COUNT 5.1 X10'3 (4.5-11.0)
[2017-10-12 07:37] LABS: INR 1.4 INR
[2017-10-12 07:55] LABS: ALANINE AMINOTRANSFERASE 37 U/L (12-78); ALBUMIN 2.1 G/DL (3.4-5.0); ALBUMIN/GLOBULIN RATIO 0.4 (1.1-1.5); ALKALINE PHOSPHATASE 113 IU/L (46-116); ANION GAP 10 (8-16); ASPARTATE AMINO TRANSFERASE 54 U/L (10-37); BILIRUBIN,TOTAL 0.8 MG/DL (0.1-1.0); BLOOD UREA NITROGEN 35 MG/DL (7-18); BUN/CREATININE RATIO 22.9 (5.4-32.0); CALCIUM 8.3 MG/DL (8.5-10.1); CHLORIDE 102 MMOL/L (99-107); CREATININE 1.53 MG/DL (0.60-1.10); GLUCOSE 108 MG/DL (70-104); MAGNESIUM 1.4 MG/DL (1.5-2.4); PHOSPHORUS 3.9 MG/DL (2.3-4.5); POTASSIUM 4.1 MMOL/L (3.5-5.1); SODIUM 139 MMOL/L (135-145); TOTAL PROTEIN 7.2 G/DL (6.4-8.2); eGFR 47 ML/MIN
[2017-10-12] MEDS: furosemide 40mg/4ml inj IV SCH ×2 (08:05→20:53)
[2017-10-12] MEDS: carVEDilol 3.125mg tablet PO SCH ×2 (08:05→20:53)
[2017-10-12] MEDS ORDERED: magnesium Cl slow-release 64mg tablet PO PRN (08:05)
[2017-10-12] MEDS: lisinopril 5mg tablet PO SCH (08:05)
[2017-10-12] MEDS ORDERED: potassium Cl 20 mEq SR tablet PO PRN ×2 (08:05)
[2017-10-12] MEDS: lactobacillus rhamnosus 10,000 MMU CELLS/CAPSULE PO SCH ×2 (08:05→20:53)
[2017-10-12 11:00] VITALS: BP 102/74
[2017-10-12] MEDS: levoFLOXACIN 750MG TABLET PO SCH (11:08)
[2017-10-12 15:00] VITALS: BP 100/70
[2017-10-12 19:00] VITALS: BP 122/87
[2017-10-12] MEDS: insulin glargine (Lantus) pen - multi-dose SQ SCH (21:00)
[2017-10-12] MEDS ORDERED: warfarin 7.5mg tablet PO ONE (21:00)
[2017-10-12] MEDS: HYDROcodone/acetaminophen 5mg/325mg tablet PO PRN (21:01)
[2017-10-12 23:00] VITALS: BP 104/72
[2017-10-13 03:00] VITALS: BP 153/64
[2017-10-13 05:30] LABS: BASOPHILS % (AUTO) 0.6 % (0-1); EOSINOPHILS # (AUTO) 0.2 X10'3 (0-0.9); EOSINOPHILS % (AUTO) 4.2 % (0-6); HEMATOCRIT 44.6 % (42.0-52.0); HEMOGLOBIN 14.6 g/dl (14.0-17.9); LYMPHOCYTES # (AUTO) 1.4 X10'3 (1.1-4.8); LYMPHOCYTES % (AUTO) 26.3 % (21-51); MEAN CORPUSCULAR HEMOGLOBIN 27.3 PG (27.0-31.0); MEAN CORPUSCULAR HGB CONC 32.7 % (33.0-36.5); MEAN CORPUSCULAR VOLUME 83.5 FL (78-98); MEAN PLATELET VOLUME 8.2 FL (7.4-10.4); MONOCYTES # (AUTO) 0.4 X10'3 (0-0.9); MONOCYTES % (AUTO) 7.7 % (2-12); NEUTROPHILS # (AUTO) 3.2 X10'3 (1.8-7.7); NEUTROPHILS % (AUTO) 61.2 % (42-75); PLATELET COUNT 161 X10'3 (140-440); RED BLOOD COUNT 5.34 X10'6 (4.70-6.10); RED CELL DISTRIBUTION WIDTH 23.5 % (11.5-14.5); WHITE BLOOD COUNT 5.2 X10'3 (4.5-11.0)
[2017-10-13 05:43] LABS: INR 1.5 INR; PROTHROMBIN TIME 14.9 SECONDS (9.0-12.0)
[2017-10-13 06:00] VITALS: BP 105/72
[2017-10-13 06:16] LABS: ALANINE AMINOTRANSFERASE 41 U/L (12-78); ALBUMIN 2.2 G/DL (3.4-5.0); ALBUMIN/GLOBULIN RATIO 0.4 (1.1-1.5); ALKALINE PHOSPHATASE 116 IU/L (46-116); ANION GAP 9 (8-16); ASPARTATE AMINO TRANSFERASE 61 U/L (10-37); BILIRUBIN,TOTAL 0.8 MG/DL (0.1-1.0); BLOOD UREA NITROGEN 33 MG/DL (7-18); BUN/CREATININE RATIO 23.1 (5.4-32.0); CALCIUM 8.3 MG/DL (8.5-10.1); CHLORIDE 102 MMOL/L (99-107); CREATININE 1.43 MG/DL (0.60-1.10); GLUCOSE 104 MG/DL (70-104); MAGNESIUM 1.6 MG/DL (1.5-2.4); PHOSPHORUS 3.6 MG/DL (2.3-4.5); SODIUM 140 MMOL/L (135-145); TOTAL CARBON DIOXIDE 28.7 MMOL/L (24-32); TOTAL PROTEIN 7.4 G/DL (6.4-8.2); eGFR 51 ML/MIN
[2017-10-13] MEDS: lactobacillus rhamnosus 10,000 MMU CELLS/CAPSULE PO SCH ×2 (07:44→19:55)
[2017-10-13] MEDS: carVEDilol 3.125mg tablet PO SCH ×2 (07:44→19:55)
[2017-10-13] MEDS: furosemide 40mg/4ml inj IV SCH ×2 (08:08→19:54)
[2017-10-13 11:00] VITALS: BP 98/67
[2017-10-13 15:00] VITALS: BP 119/91
[2017-10-13 19:00] VITALS: BP 112/79
[2017-10-13] MEDS: HYDROcodone/acetaminophen 5mg/325mg tablet PO PRN (19:56)
[2017-10-13] MEDS ORDERED: warfarin 7.5mg tablet PO ONE (21:00)
[2017-10-13] MEDS: insulin glargine (Lantus) pen - multi-dose SQ SCH (21:00)
[2017-10-13 23:00] VITALS: BP 119/90
[2017-10-14 03:00] VITALS: BP 128/80
[2017-10-14 05:47] LABS: INR 1.6 INR; PROTHROMBIN TIME 16.1 SECONDS (9.0-12.0)
[2017-10-14 06:00] VITALS: BP 119/78
[2017-10-14 06:06] LABS: BASOPHILS % (AUTO) 0.5 % (0-1); EOSINOPHILS # (AUTO) 0.2 X10'3 (0-0.9); EOSINOPHILS % (AUTO) 3.4 % (0-6); HEMATOCRIT 46.1 % (42.0-52.0); HEMOGLOBIN 14.8 g/dl (14.0-17.9); LYMPHOCYTES # (AUTO) 1.5 X10'3 (1.1-4.8); LYMPHOCYTES % (AUTO) 29.9 % (21-51); MEAN CORPUSCULAR HEMOGLOBIN 26.9 PG (27.0-31.0); MEAN PLATELET VOLUME 9.1 FL (7.4-10.4); MONOCYTES # (AUTO) 0.4 X10'3 (0-0.9); MONOCYTES % (AUTO) 8.2 % (2-12); NEUTROPHILS # (AUTO) 2.9 X10'3 (1.8-7.7); PLATELET COUNT 137 X10'3 (140-440); RED BLOOD COUNT 5.49 X10'6 (4.70-6.10); RED CELL DISTRIBUTION WIDTH 23.2 % (11.5-14.5)
[2017-10-14 06:20] LABS: ALANINE AMINOTRANSFERASE 43 U/L (12-78); ALBUMIN 2.3 G/DL (3.4-5.0); ALBUMIN/GLOBULIN RATIO 0.4 (1.1-1.5); ALKALINE PHOSPHATASE 134 IU/L (46-116); ANION GAP 11 (8-16); ASPARTATE AMINO TRANSFERASE 68 U/L (10-37); BILIRUBIN,TOTAL 0.8 MG/DL (0.1-1.0); BLOOD UREA NITROGEN 33 MG/DL (7-18); CALCIUM 8.4 MG/DL (8.5-10.1); CHLORIDE 100 MMOL/L (99-107); CREATININE 1.22 MG/DL (0.60-1.10); GLUCOSE 104 MG/DL (70-104); MAGNESIUM 1.7 MG/DL (1.5-2.4); PHOSPHORUS 3.5 MG/DL (2.3-4.5); POTASSIUM 3.7 MMOL/L (3.5-5.1); SODIUM 138 MMOL/L (135-145); TOTAL CARBON DIOXIDE 26.7 MMOL/L (24-32); TOTAL PROTEIN 7.6 G/DL (6.4-8.2); eGFR 61 ML/MIN
[2017-10-14] MEDS: furosemide 40mg/4ml inj IV SCH (07:52)
[2017-10-14] MEDS: carVEDilol 3.125mg tablet PO SCH (07:52)
[2017-10-14] MEDS: lactobacillus rhamnosus 10,000 MMU CELLS/CAPSULE PO SCH (07:52)
[2017-10-14 11:00] VITALS: BP 106/76
[2017-10-14] MEDS ORDERED: warfarin 10mg tablet PO ONE (21:00)
== END 2017-10-14 18:44 | disposition home or self-care (01) | DRG 194 ==
LOC: ER 14:39 → ED HOLD 21:23 → EDBEDREQ 10-10 15:53 → PCU 3S 10-10 16:30
PROVIDERS: ADMIT Internal Medicine; ATTEND Internal Medicine
DX: I13.0 Hypertensive heart and chronic kidney disease with heart failure and stage 1 through stage 4 chronic kidney disease, or unspecified chronic kidney disease (principal); N17.0 Acute kidney failure with tubular necrosis; I50.23 Acute on chronic systolic (congestive) heart failure; E11.21 Type 2 diabetes mellitus with diabetic nephropathy; J44.9 Chronic obstructive pulmonary disease, unspecified; B19.20 Unspecified viral hepatitis C without hepatic coma; Z66 Do not resuscitate; F15.10 Other stimulant abuse, uncomplicated; N18.9 Chronic kidney disease, unspecified; I08.1 Rheumatic disorders of both mitral and tricuspid valves; Z60.2 Problems related to living alone; E11.22 Type 2 diabetes mellitus with diabetic chronic kidney disease; F12.90 Cannabis use, unspecified, uncomplicated; Z51.5 Encounter for palliative care; I42.9 Cardiomyopathy, unspecified; Z59.0 Homelessness; Z79.01 Long term (current) use of anticoagulants; Z83.3 Family history of diabetes mellitus; Z86.73 Personal history of transient ischemic attack (TIA), and cerebral infarction without residual deficits; Z88.0 Allergy status to penicillin; Z56.0 Unemployment, unspecified; Z88.6 Allergy status to analgesic agent; Z79.899 Other long term (current) drug therapy; Z79.82 Long term (current) use of aspirin; Z79.4 Long term (current) use of insulin; Z79.84 Long term (current) use of oral hypoglycemic drugs
CPT/HCPCS: 36415; 71046; 80053; 80305; 82948; 83036; 83735; 83880; 84100; 84484; 85025; 85610; 85730; 93005; 93306; 94760; 96374; 99285; A4315; A4344; J1815; J1940; J7030